=== PATIENT | male | born 1950 | race Caucasian/White ===

== ENCOUNTER 2017-09-12 03:54 | Inpatient (IN) | payer OTHER ==
[~2017-09-12] VITALS: Ht 185.4 cm; Wt 127.9 kg
[~2017-09-12 03:54] MED LIST: AZEL0.05 PO; COEN400C2 PO; ENOX120P SQ; FERR324T4 PO; MONT10TA2 PO; PACE200T4 PO; PROT40TA PO; RIVA15 PO; RIVA20 PO; SYMB160A INH; TUMS500C CHEW; VITA20002 PO; Z.0.OXYGENDME NC
[2017-09-12 04:00] VITALS: BP 135/66; PULSE 60; RESP 18; TEMP 97.6; O2SAT 98
--- NOTE | 2017-09-12 05:08 | PD ---
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 He has been giving himself Rocephin 1 g IM twice daily for the last 10 days while he was away in [place] and it is not responding at this time it is getting worse he has cellulitis around the steve-umbilical area about 10 cm area of cellulitis getting worse in spite of Rocephin IM. In spite of the IM Rocephin it is progressively getting worse she is failing the treatment that he has been giving himself he was away to [place] for a 10 day trip. Patient has a long complicated history of abdomen surgery he had a neuro VACUUM EXTRACTOR OPERATOR shunt attempted to be placed in. [facility] 2006 they apparently put the VACUUM EXTRACTOR OPERATOR shunt into his colon which led to a open laparotomy to repair the colon he was dropped apparently fractured a rib ended up having a splenic lack they took out part of his pancreas as well as taking out the entire spleen at that time and he had a hernia postoperatively which needed a mesh which led to an infection. This episode of cellulitis started about 2 weeks ago and he is failing the IM Rocephin that he was taken he did his own I&D on his periumbilical area with pus expressed he reports this was done within 24 hours he just flew in from [place] today PFSH Past Medical History Arthritis: No Asthma: Yes Atrial Fibrillation: Yes Heart Rhythm Problems: No Cancer: Yes (menegengeoma) Cardiovascular Problems: No Chemotherapy: No Chest Pain: No Congestive Heart Failure: No COPD: No Cerebrovascular Accident: Yes (CVA 1998) Diabetes: No Diminished Hearing: Yes (APACHE) Endocrine: No Gastrointestinal Disorders: Yes GERD: Yes Genitourinary: No Hiatal Hernia: No Hypertension: Yes Kidney Stones: No Musculoskeletal: No Neurologic: Yes Psychiatric: No Reproductive: No Respiratory: Yes Immunizations Current: Yes Migraines: No Pneumonia: Yes Radiation Therapy: No Renal Failure: No Seizures: No Sickle Cell Disease: No Sleep Apnea: No Thyroid Disease: No Ulcer: No Tetanus Vaccination: < 5 Years Influenza Vaccination: Yes Past Surgical History Abdominal Surgery: Yes (abscess to abd, spleenectomy) AICD: No Appendectomy: Yes Arteriovenous Shunt: No Cardiac Surgery: Yes (cardiac ablasion) Endocrine Surgery: No Eye Surgery: Yes (LASIK) Genitourinary Surgery: No Gynecologic Surgery: No Insulin Pump: No Joint Replacement: No Neurologic Surgery: Yes (HEMANGIOMA REMOVAL FROM BRAIN) Pacemaker: No Thoracic Surgery: No Other Surgery: Yes (left and RIGHT FOOT SURGERY, VASECTOMY, R TENDON REPAIR) Social History Alcohol Use: Yes (OCCASION) Tobacco Use: No Substance Use: No Allergies-Medications (Allergen,Severity, Reaction): Coded Allergies: amiodarone (Verified Allergy, Severe, 09/12/17) rash doxycycline (Unverified Allergy, Severe, Rash, 09/12/17) minocycline (Unverified Allergy, Severe, Rash, 09/12/17) tigecycline (Unverified Allergy, Severe, Rash, 09/12/17) Sulfa (Sulfonamide Antibiotics) (Unverified Allergy, Unknown, 09/12/17) ciprofloxacin (Unverified Allergy, Unknown, 09/12/17) Reported Meds & Prescriptions Reported Meds & Active Scripts Active Reported Metoprolol Succinate ER 24 HR (Metoprolol Succinate) 50 Mg Tab 50 Mg PO DAILY Hydrochlorothiazide 25 Mg Tab 25 Mg PO DAILY Lipitor (Atorvastatin Calcium) 80 Mg Tab 80 Mg PO HS Pantoprazole (Pantoprazole Sodium) 40 Mg Tab 40 Mg PO DAILY Montelukast (Montelukast Sodium) 10 Mg Tab 10 Mg PO HS Atorvastatin (Atorvastatin Calcium) 20 Mg Tab 20 Mg PO HS Vitamin D-1000 (Cholecalciferol) 1,000 Unit Tab 1,000 Units PO DAILY Calcium Carbonate (Antacid) 500 Mg Chew 500 Mg CHEW DAILY PRN Review of Systems Except as stated in HPI: all other systems reviewed are Neg Gastrointestinal: Positive: Abdominal Pain Physical Exam Narrative GENERAL: Nontoxic appearing awake alert SKIN: Warm and dry. HEAD: Atraumatic. Normocephalic. EYES: Pupils equal and round. No scleral icterus. No injection or drainage. ENT: No nasal bleeding or discharge. Mucous membranes pink and moist. NECK: Trachea midline. No JVD. CARDIOVASCULAR: Regular rate and rhythm. RESPIRATORY: No accessory muscle use. Clear to auscultation. Breath sounds equal bilaterally. GASTROINTESTINAL: Abdomen --> umbilicus is purulent looking and he also has cellulitis about 10 cm all around the umbilicus it is not raised it is patchy but it is a wide girth of area that has cellulitis MUSCULOSKELETAL: Extremities without clubbing, cyanosis, or edema. No obvious deformities. NEUROLOGICAL: Awake and alert. No obvious cranial nerve deficits. Motor grossly within normal limits. Five out of 5 muscle strength in the arms and legs. Normal speech. PSYCHIATRIC: Appropriate mood and affect; insight and judgment normal. Data Data Last Documented VS Vital Signs Date Time Temp Pulse Resp B/P (MAP) Pulse Ox O2 Delivery O2 Flow Rate FiO2 09/12/17 04:00 97.6 60 18 135/66 (89) 98 Orders Orders Vancomycin Inj (Vancomycin Inj) (09/12/17 05:15) Complete Blood Count With Diff (09/12/17 05:08) Comprehensive Metabolic Panel (09/12/17 05:08) Blood Culture (09/12/17 05:08) Lactic Acid (09/12/17 05:09) Admit Order (Ed Use Only) (09/12/17 05:55) Vital Signs (Adult) DOMINIQUE.Q4H (09/12/17 05:55) Activity Oob Ad Anny (09/12/17 05:55) Morphine Inj (Morphine Inj) (09/12/17 06:00) Diet Heart Healthy (09/12/17 Breakfast) Labs Laboratory Tests Test 09/12/17 05:23 White Blood Count 5.3 TH/MM3 Red Blood Count 4.79 MIL/MM3 Hemoglobin 15.6 GM/DL Hematocrit 45.0 % Mean Corpuscular Volume 93.9 FL Mean Corpuscular Hemoglobin 32.5 PG Mean Corpuscular Hemoglobin Concent 34.6 % Red Cell Distribution Width 13.6 % Platelet Count 393 TH/MM3 Mean Platelet Volume 8.4 FL Neutrophils (%) (Auto) 42.0 % Lymphocytes (%) (Auto) 37.1 % Monocytes (%) (Auto) 14.1 % Eosinophils (%) (Auto) 5.8 % Basophils (%) (Auto) 1.0 % Neutrophils # (Auto) 2.2 TH/MM3 Lymphocytes # (Auto) 2.0 TH/MM3 Monocytes # (Auto) 0.7 TH/MM3 Eosinophils # (Auto) 0.3 TH/MM3 Basophils # (Auto) 0.1 TH/MM3 CBC Comment DIFF FINAL Differential Comment Blood Urea Nitrogen 21 MG/DL Creatinine 1.11 MG/DL Random Glucose 99 MG/DL Total Protein 7.5 GM/DL Albumin 3.7 GM/DL Calcium Level 9.4 MG/DL Alkaline Phosphatase 101 U/L Aspartate Amino Transf (AST/SGOT) 23 U/L Alanine Aminotransferase (ALT/SGPT) 29 U/L Total Bilirubin 0.5 MG/DL Sodium Level 139 MEQ/L Potassium Level 3.9 MEQ/L Chloride Level 103 MEQ/L Carbon Dioxide Level 26.1 MEQ/L Anion Gap 10 MEQ/L Estimat Glomerular Filtration Rate 66 ML/MIN Lactic Acid Level 0.7 mmol/L [facility] Medical Decision Making Medical Screen Exam Complete: Yes Emergency Medical Condition: Yes Differential Diagnosis cellulitis vs abscess vs sub Q hematoma , seroma , peritonitis , umbilical vein infection Narrative Course VANCO IV FOR CELLULITS AND FAILED OUTPT TREATMENT WITH CEFTRIAXONE. im SELF ADMINISTER FOR OVER 7 DAYS WITHOUT IMPROVEMENT , NEED B/C AND CBC AND POSSIBLE IMAGING AND FEW DAYS INPT VANCO AND WOUND CULTURES Ghulam Reeves MD Sep 12, 2017 05:08
[2017-09-12] MEDS ORDERED: VANCOMYCIN INJ 1,000 MG in SODIUM CHLOR 0.9% 250 ML INJ 250 ML IV ONE (05:15)
[2017-09-12 05:47] LABS: AUTOMATED NEUTROPHIL # 2.2 TH/MM3 (1.8-7.7); BASOPHIL # 0.1 TH/MM3 (0-0.2); EOSINOPHIL # 0.3 TH/MM3 (0-0.4); EOSINOPHIL % 5.8 % (0.0-4.0); HEMOGLOBIN 15.6 GM/DL (13.0-17.0); LYMPH % 37.1 % (9.0-44.0); MEAN CELL VOLUME 93.9 FL (80.0-100.0); MEAN CORPUSCULAR HEMOGLOBIN 32.5 PG (27.0-34.0); MEAN CORPUSCULAR HGB CONC 34.6 % (32.0-36.0); MEAN PLATELET VOLUME 8.4 FL (7.0-11.0); MONO % 14.1 % (0.0-8.0); MONOCYTE # 0.7 TH/MM3 (0-0.9); PLATELET COUNT 393 TH/MM3 (150-450); RED BLOOD COUNT 4.79 MIL/MM3 (4.50-5.90); RED CELL DISTRIBUTION WIDTH 13.6 % (11.6-17.2); WHITE BLOOD COUNT 5.3 TH/MM3 (4.0-11.0)
[2017-09-12] MEDS ORDERED: MORPHINE SULFATE 2 MG/ML SYRINGE IV PUSH PRN (06:00)
[2017-09-12 06:16] LABS: ALBUMIN 3.7 GM/DL (3.4-5.0); ALT (GPT) 29 U/L (12-78); AST (GOT) 23 U/L (15-37); BICARBONATE 26.1 MEQ/L (21.0-32.0); BLOOD UREA NITROGEN 21 MG/DL (7-18); CALCIUM 9.4 MG/DL (8.5-10.1); CHLORIDE 103 MEQ/L (98-107); CREATININE 1.11 MG/DL (0.60-1.30); GLOMERULAR FILTRATION RATE 66 ML/MIN (>89); GLUCOSE,RANDOM 99 MG/DL (74-106); SODIUM (NA) 139 MEQ/L (136-145)
[2017-09-12 06:19] LABS: ALKALINE PHOSPHATASE 101 U/L (45-117); TOTAL BILIRUBIN ADULT 0.5 MG/DL (0.2-1.0); TOTAL PROTEIN 7.5 GM/DL (6.4-8.2)
[2017-09-12] MEDS ORDERED: ATOR20TA15 PO (06:35)
[2017-09-12] MEDS ORDERED: PANT40TA3 PO (06:35)
[2017-09-12] MEDS ORDERED: HYDR25TA5 PO (06:35)
[2017-09-12] MEDS ORDERED: METO1TAB9 PO (06:35)
[2017-09-12] MEDS ORDERED: CALC500C16 CHEW (06:35)
[2017-09-12] MEDS ORDERED: LIPI80TA PO (06:35)
[2017-09-12] MEDS ORDERED: MONT10TA4 PO (06:35)
[2017-09-12] MEDS ORDERED: VITA1000 PO (06:35)
[2017-09-12 07:11] VITALS: BP 112/56; PULSE 63; RESP 16; TEMP 97.7; O2SAT 97
--- NOTE | 2017-09-12 09:59 | HHI.HP ---
HPI Service [facility] Hospitalists Primary Care Physician Slick Allen MD Admission Diagnosis cellulitis Chief Complaint: Possible possible abdominal wall abscess Travel History International Travel<30 Days: Yes Contact w/Intl Traveler <30 Da: Yes Name of Country Traveled to: [place], [place], [place] Traveled to Known Affected Are: No History of Present Illness Patient is a pleasant 67-year-old male with prior history of meningioma, status post excision with complications of bacterial meningitis, meningocele, ventriculoperitoneal shunt complications. Patient's postprocedural course for his ventriculoatrial shunt was complicated by a provoked pulmonary embolism and subclavian vein thrombosis. These events occurred in 2013, and I recall the patient from April 2014 hospitalization. Per [facility] review, patient was last seen by hematology/oncology, Dr. Jessy Little October 2014. Patient is no longer on chronic anticoagulation. Patient was seen by general surgery, Dr. Papito Bustillos, on August 28, 2017. I have reviewed the office note. At that time, Dr. Benson complained of localized erythema at his lower abdomen which had started 2 days prior. Patient denied pain or fever physical exam by Dr. Bustillos revealed region of induration and erythema of approximately 10 cm diameter. At that time patient was recommended Rocephin 1 g IV and Augmentin 500 mg 3 times daily for 10 days. Pt completed 3 dose of Augmentin. Patient had an outpatient soft tissue ultrasound on 08/28/17 which showed soft tissue edema. Patient had a second outpatient soft tissue ultrasound performed on 09/02/17 which showed soft tissue edema in the subcutaneous tissue of possible cellulitis. No definitive abscess collection was noted. Subsequently, Dr. Benson traveled from the [facility] to [facility]. Patient has been giving himself Rocephin 1 g IM injections for the last 10 days. However, patient reports that cellulitis around his periumbilical area has been worsening. Pt took clindamycin 450mg 2 doses 09/10 -09/11/17. Pt also started on unspecified probiotics. Patient performed self incision with sterile needle and drainage expressing serosanguineous fluid 09/10/17. No culture was done. Patient flew back to the [place] from [place] arriving in [place], [place] on 09/12/17 arriving after midnight. Patient then drove directly to the [facility] ER. Since admission, patient has had no fever, chills, nausea, vomiting, or diarrhea. Initial CBC showed no leukocytosis, WBC 5.3. Patient received 1 g of vancomycin in the [facility] ER at approximately 5:30 AM this morning. Blood cultures were drawn in the ER and they are pending at this time. Of concern patient has had previous multiple abdominal surgeries: 2006 Pt had ruptured appendix, retrocecal. Wound healed by secondary intent. Pt subsequently developed a ventral hernia which was repaired with mesh and required a revision. 2017 Meningioma surgery. Developed pseudomeningocele. WEB SITE MANAGER shunt converted to ventricular-atrial shunt. 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 Also, colon repair. Review of Systems Constitutional: DENIES: Diaphoretic episodes, Fatigue, Fever, Weight gain, Weight loss, Chills, Dizziness, Change in appetite, Night Sweats Endocrine: DENIES: Heat/cold intolerance, Polydipsia, Polyuria, Polyphagia Eyes: DENIES: Blurred vision, Diplopia, Eye inflammation, Eye pain, Vision loss , Photosensitivity, Double Vision Ears, nose, mouth, throat: DENIES: Tinnitus, Hearing loss, Vertigo, Nasal discharge, Oral lesions, Throat pain, Hoarseness, Ear Pain, Running Nose, Epistaxis, Sinus Pain, Toothache, Odynophagia Respiratory: DENIES: Apneas, Cough, Snoring, Wheezing, Hemoptysis, Sputum production, Shortness of breath Cardiovascular: DENIES: Chest pain, Palpitations, Syncope, Dyspnea on Exertion , PND, Lower Extremity Edema, Orthopnea, Claudication Gastrointestinal: DENIES: Abdominal pain, Black stools, Bloody stools, BRB per rectum, Constipation, Diarrhea, GERD, Nausea, Reflux, Vomiting, Difficulty Swallowing, Anorexia Genitourinary: DENIES: Urinary frequency, Urinary incontinence, Urgency, Hematuria, Dysuria, Nocturia Musculoskeletal: DENIES: Joint pain, Muscle aches, Stiffness, Joint Swelling, Back pain, Neck pain Integumentary: DENIES: Abnormal pigmentation, Nail changes, Pruritus, Rash Hematologic/lymphatic: DENIES: Bruising, Lymphadenopathy Immunologic/allergic: DENIES: Eczema, Urticaria Neurologic: DENIES: Abnormal gait, Headache, Localized weakness, Paresthesias, Seizures, Speech Problems, Tremor, Poor Balance Psychiatric: DENIES: Anxiety, Confusion, Mood changes, Depression, Hallucinations, Agitation, Suicidal Ideation, Homicidal Ideation, Delusions, History of Bipolar, History of Schizophrenia Past Family Social History Past Medical History 1) meningioma, status post excision with complications of bacterial meningitis, meningocele, BP shunt complications in 2013 2) provoked pulmonary embolism and subclavian vein thrombosis associated with WEB SITE MANAGER shunt & subsequent VA shunt -Patient completed 6 months of anticoagulation therapy under hematology 3) basal ganglia infarction in 1998 -Residual right foot weakness at times 4) mitral regurgitation 5) osteoarthritis 6) asthma 7) history of anal fissure 8) transient atrial fibrillation, s/p ablation x 2 9) hypertension 10) DAJUAN on CPAP 11) Migraines 12) previously reported Hyperhomocysteinemia 13 ) Antiphospholipid syndrome - needs repeat antiphospholipid panel as only marginally abnormal in May 2014 Past Surgical History 1) excision of meningioma, extending from the foramen magnum to C1 by suboccipital craniotomy with C1 laminectomy, 2013 2) WEB SITE MANAGER shunt, 2013 3) laparotomy with repair to the spleen and excision of a portion of the pancreas, colon repair 4) ventricularatrial shunt 5) appendectomy secondary to ruptured appendix, 2006 6) ventral hernia repair with subsequent infection. Pt had mesh. 7) Atrial fibrillation, ablation x 2, at [facility] [place] [facility]. Reported Medications Reported Meds & Active Scripts Active Reported Metoprolol Succinate ER 24 HR (Metoprolol Succinate) 50 Mg Tab 50 Mg PO DAILY Hydrochlorothiazide 25 Mg Tab 25 Mg PO DAILY Lipitor (Atorvastatin Calcium) 80 Mg Tab 80 Mg PO HS Pantoprazole (Pantoprazole Sodium) 40 Mg Tab 40 Mg PO DAILY Montelukast (Montelukast Sodium) 10 Mg Tab 10 Mg PO HS Atorvastatin (Atorvastatin Calcium) 20 Mg Tab 20 Mg PO HS Vitamin D-1000 (Cholecalciferol) 1,000 Unit Tab 1,000 Units PO DAILY Calcium Carbonate (Antacid) 500 Mg Chew 500 Mg CHEW DAILY PRN Allergies: Coded Allergies: amiodarone (Verified Allergy, Severe, 09/12/17) rash doxycycline (Unverified Allergy, Severe, Rash, 09/12/17) minocycline (Unverified Allergy, Severe, Rash, 09/12/17) tigecycline (Unverified Allergy, Severe, Rash, 09/12/17) Sulfa (Sulfonamide Antibiotics) (Unverified Allergy, Unknown, 09/12/17) ciprofloxacin (Unverified Allergy, Unknown, 4/26/18) Family History Mother age 83, carcinomatosis Father age 85 lymphoma Sister age 48 lymphoma Brother alive and well, age 55 Social History 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 A daughter who lives locally, [facility], and a son who lives in [place]. No tobacco use 14 alcohol beverages per week, mainly red wine or bourbon No illicit street drugs Physical Exam Vital Signs Vital Signs Date Time Temp Pulse Resp B/P (MAP) Pulse Ox O2 Delivery O2 Flow Rate FiO2 09/12/17 07:11 97.7 63 16 112/56 (74) 97 Room Air 09/12/17 04:00 97.6 60 18 135/66 (89) 98 Physical Exam GENERAL: This is a well-nourished, well-developed patient, in no apparent distress. SKIN: No rashes, ecchymoses or lesions. Cool and dry. HEAD: Atraumatic. Normocephalic. No temporal or scalp tenderness. EYES: Pupils equal round and reactive. Extraocular motions intact. No scleral icterus. No injection or drainage. ENT: Nose without bleeding, purulent drainage or septal hematoma. Throat without erythema, tonsillar hypertrophy or exudate. Uvula midline. Airway patent. NECK: Trachea midline. No JVD or lymphadenopathy. Supple, nontender, no meningeal signs. CARDIOVASCULAR: Regular rate and rhythm without murmurs, gallops, or rubs. RESPIRATORY: Clear to auscultation. Breath sounds equal bilaterally. No wheezes , rales, or rhonchi. GASTROINTESTINAL: Abdomen soft, non-tender, nondistended. No hepato-splenomegaly , or palpable masses. No guarding. MUSCULOSKELETAL: Extremities without clubbing, cyanosis, or edema. No joint tenderness, effusion, or edema noted. No calf tenderness. Negative Homans sign bilaterally. NEUROLOGICAL: Awake and alert. Cranial nerves II through XII intact. Motor and sensory grossly within normal limits. Five out of 5 muscle strength in all muscle groups. Normal speech. Laboratory Laboratory Tests Test 09/12/17 05:23 White Blood Count 5.3 Red Blood Count 4.79 Hemoglobin 15.6 Hematocrit 45.0 Mean Corpuscular Volume 93.9 Mean Corpuscular Hemoglobin 32.5 Mean Corpuscular Hemoglobin Concent 34.6 Red Cell Distribution Width 13.6 Platelet Count 393 Mean Platelet Volume 8.4 Neutrophils (%) (Auto) 42.0 Lymphocytes (%) (Auto) 37.1 Monocytes (%) (Auto) 14.1 Eosinophils (%) (Auto) 5.8 Basophils (%) (Auto) 1.0 Neutrophils # (Auto) 2.2 Lymphocytes # (Auto) 2.0 Monocytes # (Auto) 0.7 Eosinophils # (Auto) 0.3 Basophils # (Auto) 0.1 CBC Comment DIFF FINAL Differential Comment Blood Urea Nitrogen 21 Creatinine 1.11 Random Glucose 99 Total Protein 7.5 Albumin 3.7 Calcium Level 9.4 Alkaline Phosphatase 101 Aspartate Amino Transf (AST/SGOT) 23 Alanine Aminotransferase (ALT/SGPT) 29 Total Bilirubin 0.5 Sodium Level 139 Potassium Level 3.9 Chloride Level 103 Carbon Dioxide Level 26.1 Anion Gap 10 Estimat Glomerular Filtration Rate 66 Lactic Acid Level 0.7 Date/Time Source Procedure Growth Status 09/12/17 05:25 Blood Peripheral Aerobic Blood Culture Pending Received 09/12/17 05:25 Blood Peripheral Anaerobic Blood Culture Pending Received Result Diagram: 09/12/17 0523 09/12/17 0523 Septic Shock Reassessment Septic shock perfusion: reassessment completed Caprini VTE Risk Assessment Caprini VTE Risk Assessment: Mod/High Risk (score >= 2) Caprini Risk Assessment Model Point Value = 1 Point Value = 2 Point Value = 3 Point Value = 5 Age 41-60 Minor surgery BMI > 25 kg/m2 Swollen legs Varicose veins or History of unexplained or recurrent spontaneous Oral contraceptives or hormone replacement Sepsis (< 1 month) Serious lung disease, including pneumonia (< 1 month) Abnormal pulmonary function Acute myocardial infarction Congestive heart failure (< 1 month) History of inflammatory bowel disease Medical patient at bed rest Age 61-74 Arthroscopic surgery Major open surgery (> 45 min) Laparoscopic surgery (> 45 min) Malignancy Confined to bed (> 72 hours) Immobilizing plaster cast Central venous access Age >= 75 History of VTE Family history of VTE Factor V Leiden Prothrombin [id number] Lupus anticoagulant Anticardiolipin antibodies Elevated serum homocysteine Heparin-induced thrombocytopenia Other congenital or acquired thrombophilia Stroke (< 1 month) Elective arthroplasty Hip, pelvis, or leg fracture Acute spinal cord injury (< 1 month) Prophylaxis Regimen Total Risk Factor Score Risk Level Prophylaxis Regimen 0-1 Low Early ambulation 2 Moderate Order ONE of the following: *Sequential Compression Device (SCD) *Heparin 5000 units SQ BID 3-4 Higher Order ONE of the following medications: *Heparin 5000 units SQ TID *Enoxaparin/Lovenox 40 mg SQ daily (WT < 150 kg, CrCl > 30 mL/min) *Enoxaparin/Lovenox 30 mg SQ daily (WT < 150 kg, CrCl > 10-29 mL/min) *Enoxaparin/Lovenox 30 mg SQ BID (WT < 150 kg, CrCl > 30 mL/min) AND/OR *Sequential Compression Device (SCD) 5 or more Highest Order ONE of the following medications: *Heparin 5000 units SQ TID (Preferred with Epidurals) *Enoxaparin/Lovenox 40 mg SQ daily (WT < 150 kg, CrCl > 30 mL/min) *Enoxaparin/Lovenox 30 mg SQ daily (WT < 150 kg, CrCl > 10-29 mL/min) *Enoxaparin/Lovenox 30 mg SQ BID (WT < 150 kg, CrCl > 30 mL/min) AND *Sequential Compression Device (SCD) Assessment and Plan Problem List: (1) Cellulitis, abdominal wall ICD Codes: L03.311 - Cellulitis of abdominal wall Status: Acute Plan: - Comgmt with Infectious Disease and General Surgery - please see my the HPI section of my H&P for detailed account of the pt's clinical course prior to admission and discussion of previous abdominal surgeries - Pt was taking IM Rocephin for approximately 10d prior to arrival at [facility] - Pt also briefly took PO augmentin and clindamycin in the 2 week proceeding his admission. - Case d/w Infectious Disease (09/12/17), Dr. Sanchez. - Case d/w General Surgery (09/12/17), Dr. Bustillos. - Continue Vancomycin - Obtain soft tissue of abdominal wall - Obtain Abdominal CT - DVT prophylaxis - supportive care. (2) Paroxysmal atrial fibrillation ICD Codes: I48.0 - Paroxysmal atrial fibrillation Status: Chronic Plan: - continue metoprolol and Aspirin (3) HTN (hypertension) ICD Codes: I10 - HTN (hypertension) Status: Chronic Plan: - metoprolol (4) Asthma ICD Codes: J45.909 - Asthma Status: Chronic Plan: - duonebs prn (5) Meningioma ICD Codes: D32.9 - Meningioma Status: Resolved Plan: - see HPI and PMH for further discussion of this prior issue. Problem Qualifiers (1) HTN (hypertension): Qualified Codes: I10 - Essential (primary) hypertension (2) Asthma: Yusuf Saldana DO Sep 12, 2017 09:59
[2017-09-12] MEDS ORDERED: RESP: ALBUTEROL 2.5 MG/IPRATROPIUM 0.5 MG NEB (PRN) NEB (10:45)
[2017-09-12 12:00] VITALS: BP 118/61; PULSE 65; RESP 20; TEMP 96; O2SAT 94
[2017-09-12] MEDS: PANTOPRAZOLE SOD 40 MG DELAYED RELEASE TAB PO SCH (12:02)
[2017-09-12] MEDS: ASPIRIN 325 MG TAB PO SCH (12:02)
[2017-09-12] MEDS: METOPROLOL SUCCINATE 50 MG EXTENDED RELEASE TAB PO SCH (12:02)
--- NOTE | 2017-09-12 13:05 | RADRPT ---
EXAM DATE/TIME: 09/12/2017 11:57 [facility] COMPARISON: No previous studies available for comparison. INDICATIONS : Abdomen swelling and redness. MEDICAL HISTORY : Gastroesophageal reflux disease. Hypertension. Cerebrovascular accident. Afib. Asthma. Pneumonia. O steoarthritis. Meningioma. SURGICAL HISTORY : Splenectomy. Appendectomy. Hemangioma removal from brain. Lasik. Abscess drainage. Bilateral foot s urgery. Vasectomy. Right tendon repair. Herniorrhaphy. ENCOUNTER: Initial ACUITY: 2 weeks PAIN SCORE: 2/10 LOCATION: Abdomen. AREA EVALUATED: Midline abdomen just inferior to the umbilicus. FINDINGS: A targeted ultrasound study was performed the area of concern demonstrated a superficial hypoechoic i ll-defined mass like area measuring up to 2.9 x 2.9 1.4 cm with scattered increased color-flow. The m argins are not well-defined. CONCLUSION: Ill-defined hypoechoic area which is nonspecific and could represent localized edema and/or inflammatory change. This is less likely represents an abscess. Taran Salazar MD on September 12, 2017 at 13:02 Board Certified Radiologist. This report was verified electronically.
--- NOTE | 2017-09-12 13:09 | PD.ID.CON ---
History of Present Illness Service ID Consult Requested By Reason for Consult Evaluation and Mment of Abdominal wall abscess. Primary Care Physician Slick Allen MD Diagnoses: History of Present Illness Doctor Marcelino is a 67 y/o CM with PMHx significant for history of meningioma, status post excision with complications of bacterial meningitis, meningocele, ventriculoperitoneal shunt complications. 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 Of note patient has had multiple abdominal surgeries with complications and has an abdominal wall mesh. Per patient he saw Dr.Harry Bustillos in office on 08/28/2017 with complains of localized erythema at his lower abdomen which had started 2 days prior to that visit.No reported fever or abdominal pain at that time. He was recommended Rocephin and Augmentin for 10 days. Patient has been self administering these in his bilateral buttocks as IM injections. Patient reportedly had an outpatient soft tissue ultrasound on 08/28/17 which showed soft tissue edema. Patient had a second outpatient soft tissue ultrasound performed on 09/02/17 which showed soft tissue edema in the subcutaneous tissue of possible cellulitis. No definitive abscess collection was noted. Patient reports he traveled from the [facility] to [facility]. Patient has been giving himself Rocephin 1 g IM injections for the last 10 days. However, patient reports that cellulitis around his periumbilical area has been worsening. Pt took clindamycin 450mg 2 doses 09/10 -09/11/17. Pt also started on unspecified probiotics. Patient performed self incision with sterile needle and drainage expressing serosanguineous fluid 09/10/17. No culture was done. Patient flew back to the [facility] from [place] arriving in [place], [place] on 09/12/17 arriving after midnight. Patient then drove directly to the [facility] ER. Since admission, patient has had no fever, chills, nausea, vomiting, or diarrhea. Initial CBC showed no leukocytosis, WBC 5.3. Patient received 1 g of vancomycin in the [place] ER at approximately 5:30 AM this morning. Blood cultures were drawn in the ER and they are pending at this time. Previous multiple abdominal surgeries: 2007 Pt had ruptured appendix, retrocecal. Wound healed by secondary intent. Pt subsequently developed a ventral hernia which was repaired with mesh and required a revision. 2017 Meningioma surgery. Developed pseudomeningocele. RN ALLERGY shunt converted to ventricular-atrial shunt. 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 Also, colon repair. ID was consulted for evaluation and Mment of abdominal wall abscess. Review of Systems Constitutional: DENIES: Diaphoretic episodes, Fatigue, Fever, Weight gain, Weight loss, Chills, Dizziness, Change in appetite, Night Sweats Endocrine: DENIES: Heat/cold intolerance, Polydipsia, Polyuria, Polyphagia Eyes: DENIES: Blurred vision, Diplopia, Eye inflammation, Eye pain, Vision loss , Photosensitivity, Double Vision Ears, nose, mouth, throat: DENIES: Tinnitus, Hearing loss, Vertigo, Nasal discharge, Oral lesions, Throat pain, Hoarseness, Ear Pain, Running Nose, Epistaxis, Sinus Pain, Toothache, Odynophagia Respiratory: DENIES: Apneas, Cough, Snoring, Wheezing, Hemoptysis, Sputum production, Shortness of breath Cardiovascular: DENIES: Chest pain, Palpitations, Syncope, Dyspnea on Exertion , PND, Lower Extremity Edema, Orthopnea, Claudication Gastrointestinal: DENIES: Abdominal pain, Black stools, Bloody stools, Constipation, Diarrhea, Nausea, Vomiting, Difficulty Swallowing, Anorexia Genitourinary: DENIES: Sexual dysfunction, Urinary frequency, Urinary incontinence, Urgency, Hematuria, Dysuria, Nocturia, Penile Discharge, Testicular Pain, Testicular Swelling Musculoskeletal: DENIES: Joint pain, Muscle aches, Stiffness, Joint Swelling, Back pain, Neck pain Integumentary: DENIES: Abnormal pigmentation, Nail changes, Pruritus, Rash Hematologic/lymphatic: DENIES: Bruising, Lymphadenopathy Immunologic/allergic: DENIES: Eczema, Urticaria Neurologic: DENIES: Abnormal gait, Headache, Localized weakness, Paresthesias, Seizures, Speech Problems, Tremor, Poor Balance Psychiatric: DENIES: Anxiety, Confusion, Mood changes, Depression, Hallucinations, Agitation, Suicidal Ideation, Homicidal Ideation, Delusions Except as stated in HPI: all other systems reviewed are Neg Past Family Social History Allergies: Coded Allergies: amiodarone (Verified Allergy, Severe, 09/12/17) rash doxycycline (Unverified Allergy, Severe, Rash, 09/12/17) minocycline (Unverified Allergy, Severe, Rash, 09/12/17) tigecycline (Unverified Allergy, Severe, Rash, 09/12/17) Sulfa (Sulfonamide Antibiotics) (Unverified Allergy, Unknown, 09/12/17) ciprofloxacin (Unverified Allergy, Unknown, 09/12/17) Past Medical History 1) meningioma, status post excision with complications of bacterial meningitis, meningocele, BP shunt complications in 2013 2) provoked pulmonary embolism and subclavian vein thrombosis associated with RN ALLERGY shunt & subsequent VA shunt -Patient completed 6 months of anticoagulation therapy under hematology 3) basal ganglia infarction in 1998 -Residual right foot weakness at times 4) mitral regurgitation 5) osteoarthritis 6) asthma 7) history of anal fissure 8) transient atrial fibrillation, s/p ablation x 2 9) hypertension 10) DAJUAN on CPAP 11) Migraines 12) previously reported Hyperhomocysteinemia 13 ) Antiphospholipid syndrome - needs repeat antiphospholipid panel as only marginally abnormal in May 2014 Past Surgical History 1) excision of meningioma, extending from the foramen magnum to C1 by suboccipital craniotomy with C1 laminectomy, 2013 2) RN ALLERGY shunt, 2013 3) laparotomy with repair to the spleen and excision of a portion of the pancreas, colon repair 4) ventricularatrial shunt 5) appendectomy secondary to ruptured appendix, 2006 6) ventral hernia repair with subsequent infection. Pt had mesh. 7) Atrial fibrillation, ablation x 2, at [facility]. Reported Medications Rocephin,augmentin and clindamycin. Reported Meds & Active Scripts Active Reported Metoprolol Succinate ER 24 HR (Metoprolol Succinate) 50 Mg Tab 50 Mg PO DAILY Hydrochlorothiazide 25 Mg Tab 25 Mg PO DAILY Lipitor (Atorvastatin Calcium) 80 Mg Tab 80 Mg PO HS Pantoprazole (Pantoprazole Sodium) 40 Mg Tab 40 Mg PO DAILY Montelukast (Montelukast Sodium) 10 Mg Tab 10 Mg PO HS Atorvastatin (Atorvastatin Calcium) 20 Mg Tab 20 Mg PO HS Vitamin D-1000 (Cholecalciferol) 1,000 Unit Tab 1,000 Units PO DAILY Calcium Carbonate (Antacid) 500 Mg Chew 500 Mg CHEW DAILY PRN Active Ordered Medications Current Medications Medications (Trade) Dose Ordered Sig/Leatha Route Start Time Stop Time Status Last Admin (Morphine Inj) 2 mg Q3H PRN IV PUSH 09/12/17 06:00 (Lipitor) 20 mg HS PO 09/12/17 21:00 (Vitamin D3) 1,000 units DAILY PO 09/13/17 09:00 09/13/17 08:45 (Toprol Xl) 50 mg DAILY PO 09/12/17 10:30 09/13/17 08:44 (Singulair) 10 mg HS PO 09/12/17 21:00 09/12/17 21:24 (Protonix) 40 mg DAILY PO 09/12/17 10:30 09/13/17 08:45 (Duoneb Neb) 1 ampule Q6HR NEB PRN NEB 09/12/17 10:45 (Aspirin) 325 mg DAILY PO 09/12/17 12:00 09/13/17 08:44 Pharmacy Profile Note 0 ml @ 0 mls/hr UNSCH OTHER 09/12/17 17:30 Vancomycin HCl 1500 mg/Sodium Chloride 515 ml @ 257.5 mls/ hr Q12H IV 09/13/17 09:00 09/13/17 08:44 Miscellaneous Information SPECIFIC LAB TO BE CYNTHIA... 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 A daughter who lives locally, [facility], and a son who lives in [place]. No tobacco use 14 alcohol beverages per week, mainly red wine or bourbon No illicit street drugs Physical Exam Vital Signs Vital Signs Date Time Temp Pulse Resp B/P (MAP) Pulse Ox O2 Delivery O2 Flow Rate FiO2 09/12/17 11:16 09/12/17 07:11 97.7 63 16 112/56 (74) 97 Room Air 09/12/17 04:00 97.6 60 18 135/66 (89) 98 Physical Exam GENERAL: This is a well-nourished, well-developed patient, in no apparent distress. SKIN: No rashes, ecchymoses or lesions. Cool and dry. HEAD: Atraumatic. Normocephalic. No temporal or scalp tenderness. EYES: Pupils equal round and reactive. Extraocular motions intact. No scleral icterus. No injection or drainage. ENT: Nose without bleeding, purulent drainage or septal hematoma. Throat without erythema, tonsillar hypertrophy or exudate. Uvula midline. Airway patent. NECK: Trachea midline. Supple, nontender, no meningeal signs. VA shunt palpable. CARDIOVASCULAR: Regular rate and rhythm without murmurs, gallops, or rubs. RESPIRATORY: Clear to auscultation. Breath sounds equal bilaterally. No wheezes , rales, or rhonchi. GASTROINTESTINAL: Abdomen soft, midline heaped up induration with small serous to yellow discharge with a large area of surrounding erythema and induration. MUSCULOSKELETAL: Extremities without clubbing, cyanosis, or edema. No joint tenderness, effusion, or edema noted. No calf tenderness. Negative Homans sign bilaterally. NEUROLOGICAL: Awake and alert. Cranial nerves II through XII intact. Motor and sensory grossly within normal limits. Five out of 5 muscle strength in all muscle groups. Speech hesitant Cooperative, pleasant IV line sites with no e.o infection. Laboratory Laboratory Tests Test 09/12/17 05:23 White Blood Count 5.3 Red Blood Count 4.79 Hemoglobin 15.6 Hematocrit 45.0 Mean Corpuscular Volume 93.9 Mean Corpuscular Hemoglobin 32.5 Mean Corpuscular Hemoglobin Concent 34.6 Red Cell Distribution Width 13.6 Platelet Count 393 Mean Platelet Volume 8.4 Neutrophils (%) (Auto) 42.0 Lymphocytes (%) (Auto) 37.1 Monocytes (%) (Auto) 14.1 Eosinophils (%) (Auto) 5.8 Basophils (%) (Auto) 1.0 Neutrophils # (Auto) 2.2 Lymphocytes # (Auto) 2.0 Monocytes # (Auto) 0.7 Eosinophils # (Auto) 0.3 Basophils # (Auto) 0.1 CBC Comment DIFF FINAL Differential Comment Blood Urea Nitrogen 21 Creatinine 1.11 Random Glucose 99 Total Protein 7.5 Albumin 3.7 Calcium Level 9.4 Alkaline Phosphatase 101 Aspartate Amino Transf (AST/SGOT) 23 Alanine Aminotransferase (ALT/SGPT) 29 Total Bilirubin 0.5 Sodium Level 139 Potassium Level 3.9 Chloride Level 103 Carbon Dioxide Level 26.1 Anion Gap 10 Estimat Glomerular Filtration Rate 66 Lactic Acid Level 0.7 Date/Time Source Procedure Growth Status 09/12/17 05:25 Blood Peripheral Aerobic Blood Culture Pending Received 09/12/17 05:25 Blood Peripheral Anaerobic Blood Culture Pending Received Result Diagram: 09/12/17 0523 09/12/17 0523 Imaging Last Impressions Soft Tissue Ultrasound 09/12/17 0000 Signed Impressions: Service Date/Time: August 11:57 - CONCLUSION: Ill-defined hypoechoic area which is nonspecific and could represent localized edema and/ or inflammatory change. This is less likely represents an abscess. Taran Salazar MD Abdomen/Pelvis CT 09/12/17 0000 Signed Impressions: Service Date/Time: August 14:47 - CONCLUSION: Soft tissue underneath the umbilicus with some surrounding inflammation. This is likely related to the hernia mesh placement. Obviously difficult to rule out infection with this amount of surrounding inflammation but I do not see any drainable fluid collections to suggest an abscess. Beau Walker MD Assessment and Plan Assessment and Plan A/P Abd wall cellulitis with concern for Mesh infection Recs CT Abd pelvis reviewed with Continue Vanco IV for cellulitis. Patient has tried Rocephin, Augmentin and clindamycin with no response. dr Saldana mentioned to me plans on no surgical intervention at present time so empiric vanco alone was started to assess response since all other gram negative coverage and non MRSA coverage failed so far. Dw and who will cover in am for me: agree mesh likely source and needs to come out. Await surgical opinion Opal Sanchez MD Sep 12, 2017 13:09
[2017-09-12] MEDS ORDERED: IOHEXOL 350 MG/ML 10 ML VIAL (for RAD DIAG) IVCONTRAST ONE (14:51)
--- NOTE | 2017-09-12 15:07 | RADRPT ---
EXAM DATE/TIME: 09/12/2017 14:47 [facility] COMPARISON: No previous studies available for comparison. INDICATIONS : Cellulitis IV CONTRAST: 95 cc Omnipaque 350 (iohexol) IV ORAL CONTRAST: No oral contrast ingested. RADIATION DOSE: 16.78 CTDIvol (mGy) MEDICAL HISTORY : Cerebrovascular disease. Cardiovascular disease Gastroesophageal reflux disease.Abdominal surgery, as thma, meningioma SURGICAL HISTORY : Appendectomy. Splenectomy. ENCOUNTER: Initial ACUITY: 1 day PAIN SCALE: 3/10 LOCATION: Abdomen TECHNIQUE: Volumetric scanning of the abdomen and pelvis was performed. Using automated exposure control and ad justment of the mA and/or kV according to patient size, radiation dose was kept as low as reasonably achievable to obtain optimal diagnostic quality images. DICOM format image data is available electro nically for review and comparison. FINDINGS: LOWER LUNGS: The visualized lower lungs are clear. LIVER: Homogeneous density without lesion. There is no dilation of the biliary tree. No calcified gallston es. SPLEEN: Normal size without lesion. PANCREAS: Within normal limits. KIDNEYS: Normal in size and shape. There is no mass, stone or hydronephrosis. ADRENAL GLANDS: Within normal limits. VASCULAR: There is no aortic aneurysm. BOWEL/MESENTERY: The stomach, small bowel, and colon demonstrate no acute abnormality. There is no free intraperitone al air or fluid. ABDOMINAL WALL: In the intra-abdominal wall, underneath the umbilicus there is an abnormal area of soft tissue measur ing up to 5.8 cm across. It extends for 8.1 cm in height I suspect is related to the hernia mesh. I d on't see surrounding soft tissue fluid collections. There is diffuse inflammation of the overlying s ubcutaneous fat could be a cellulitis. RETROPERITONEUM: There is no lymphadenopathy. BLADDER: No wall thickening or mass. REPRODUCTIVE: Within normal limits. INGUINAL: There is no lymphadenopathy or hernia. MUSCULOSKELETAL: Within normal limits for patient age. CONCLUSION: Soft tissue underneath the umbilicus with some surrounding inflammation. This is likely related to th e hernia mesh placement. Obviously difficult to rule out infection with this amount of surrounding in flammation but I do not see any drainable fluid collections to suggest an abscess. Beau Walker MD on September 12, 2017 at 15:01 Board Certified Radiologist. This report was verified electronically.
[2017-09-12 16:00] VITALS: BP 120/65; PULSE 65; RESP 20; TEMP 97; O2SAT 95
--- NOTE | 2017-09-12 16:27 | PD.CONS ---
HPI Service General Surgery Consult Requested By Dr. Saldana Reason for Consult Abdominal wall cellulitis Primary Care Physician Slick Allen MD History of Present Illness 67 yo M known to Dr. Bustillos with recent h/o abdominal wall cellulitis treated as outpatient with various antibiotics. He recently was on a trip to [place] with increasing erythema and flew back here last night, presenting to ED this am. On evaluation he is noted to have cellulitis of the abdominal wall. U/s showed inflammation and CT a/p shows inflammation possibly mesh related. WBC is nml. PSH includes laparotomy for ruptured appendicitis with skin left open, ventral hernia repair with mesh x 2. Review of Systems Constitutional: DENIES: Fever, Chills Eyes: DENIES: Eye inflammation, Eye pain Respiratory: DENIES: Cough, Shortness of breath Cardiovascular: DENIES: Chest pain, Palpitations Gastrointestinal: DENIES: Abdominal pain, Nausea, Vomiting Neurologic: DENIES: Paresthesias, Seizures Past Family Social History Past Medical History 1) meningioma, status post excision with complications of bacterial meningitis, meningocele, BP shunt complications in 2013 2) provoked pulmonary embolism and subclavian vein thrombosis associated with DIRECTOR OF PHILANTHROPY shunt & subsequent VA shunt -Patient completed 6 months of anticoagulation therapy under hematology 3) basal ganglia infarction in 1998 -Residual right foot weakness at times 4) mitral regurgitation 5) osteoarthritis 6) asthma 7) history of anal fissure 8) transient atrial fibrillation, s/p ablation x 2 9) hypertension 10) DAJUAN on CPAP 11) Migraines 12) previously reported Hyperhomocysteinemia 13 ) Antiphospholipid syndrome - needs repeat antiphospholipid panel as only marginally abnormal in May 2014 Past Surgical History 1) excision of meningioma, extending from the foramen magnum to C1 by suboccipital craniotomy with C1 laminectomy, 2013 2) DIRECTOR OF PHILANTHROP[employer] shunt, 2013 3) laparotomy with repair to the spleen and excision of a portion of the pancreas, colon repair 4) ventricularatrial shunt 5) appendectomy secondary to ruptured appendix, 2006 6) ventral hernia repair with subsequent infection. Pt had mesh. 7) Atrial fibrillation, ablation x 2, at [facility]. Reported Medications Reported Meds & Active Scripts Active Reported Metoprolol Succinate ER 24 HR (Metoprolol Succinate) 50 Mg Tab 50 Mg PO DAILY Hydrochlorothiazide 25 Mg Tab 25 Mg PO DAILY Lipitor (Atorvastatin Calcium) 80 Mg Tab 80 Mg PO HS Pantoprazole (Pantoprazole Sodium) 40 Mg Tab 40 Mg PO DAILY Montelukast (Montelukast Sodium) 10 Mg Tab 10 Mg PO HS Atorvastatin (Atorvastatin Calcium) 20 Mg Tab 20 Mg PO HS Vitamin D-1000 (Cholecalciferol) 1,000 Unit Tab 1,000 Units PO DAILY Calcium Carbonate (Antacid) 500 Mg Chew 500 Mg CHEW DAILY PRN Allergies: Coded Allergies: amiodarone (Verified Allergy, Severe, 09/12/17) rash doxycycline (Unverified Allergy, Severe, Rash, 09/12/17) minocycline (Unverified Allergy, Severe, Rash, 09/12/17) tigecycline (Unverified Allergy, Severe, Rash, 09/12/17) Sulfa (Sulfonamide Antibiotics) (Unverified Allergy, Unknown, 09/12/17) ciprofloxacin (Unverified Allergy, Unknown, 09/12/17) Active Ordered Medications Current Medications Medications (Trade) Dose Ordered Sig/[place] Route Start Time Stop Time Status Last Admin (Morphine Inj) 2 mg Q3H PRN IV PUSH 09/12/17 06:00 (Lipitor) 20 mg HS PO 09/12/17 21:00 (Vitamin D3) 1,000 units DAILY PO 09/13/17 09:00 (Toprol Xl) 50 mg DAILY PO 09/12/17 10:30 09/12/17 12:02 (Singulair) 10 mg HS PO 09/12/17 21:00 (Protonix) 40 mg DAILY PO 09/12/17 10:30 09/12/17 12:02 (Duoneb Neb) 1 ampule Q6HR NEB PRN NEB 09/12/17 10:45 (Aspirin) 325 mg DAILY PO 09/12/17 12:00 09/12/17 12:02 Family History Noncontributory Social History 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 No smoking. 14 alcoholic beverages per week. Physical Exam Vital Signs Vital Signs Date Time Temp Pulse Resp B/P (MAP) Pulse Ox O2 Delivery O2 Flow Rate FiO2 09/12/17 12:00 96.0 65 20 118/61 (80) 94 4/26/18 11:16 09/12/17 07:11 97.7 63 16 112/56 (74) 97 Room Air 09/12/17 04:00 97.6 60 18 135/66 (89) 98 Physical Exam GENERAL: Awake and alert. No acute distress. Cooperative. HEAD: Normocephalic. Atraumatic. EYES: Pupils equal round and reactive to light bilaterally. No scleral icterus. ENT: Moist oral mucosa. NECK: Trachea midline. CHEST: Nonlabored breathing. No respiratory distress. CARDIOVASCULAR: Regular rate and rhythm. ABDOMEN: bilateral lower abdominal erythema. 1 inch open raised area at umbilicus EXTREMITIES: No cyanosis or edema. SKIN: Warm, dry, nonjaundiced. Laboratory Laboratory Tests Test 09/12/17 05:23 09/12/17 14:18 White Blood Count 5.3 Red Blood Count 4.79 Hemoglobin 15.6 Hematocrit 45.0 Mean Corpuscular Volume 93.9 Mean Corpuscular Hemoglobin 32.5 Mean Corpuscular Hemoglobin Concent 34.6 Red Cell Distribution Width 13.6 Platelet Count 393 Mean Platelet Volume 8.4 Neutrophils (%) (Auto) 42.0 Lymphocytes (%) (Auto) 37.1 Monocytes (%) (Auto) 14.1 Eosinophils (%) (Auto) 5.8 Basophils (%) (Auto) 1.0 Neutrophils # (Auto) 2.2 Lymphocytes # (Auto) 2.0 Monocytes # (Auto) 0.7 Eosinophils # (Auto) 0.3 Basophils # (Auto) 0.1 CBC Comment DIFF FINAL Differential Comment Blood Urea Nitrogen 21 Creatinine 1.11 Random Glucose 99 Total Protein 7.5 Albumin 3.7 Calcium Level 9.4 Alkaline Phosphatase 101 Aspartate Amino Transf (AST/SGOT) 23 Alanine Aminotransferase (ALT/SGPT) 29 Total Bilirubin 0.5 Sodium Level 139 Potassium Level 3.9 Chloride Level 103 Carbon Dioxide Level 26.1 Anion Gap 10 Estimat Glomerular Filtration Rate 66 Lactic Acid Level 0.7 Date/Time Source Procedure Growth Status 09/12/17 05:25 Blood Peripheral Aerobic Blood Culture Pending Received 09/12/17 05:25 Blood Peripheral Anaerobic Blood Culture Pending Received 09/12/17 13:34 Wound Abdomen Gram Stain Pending Received 09/12/17 13:34 Wound Abdomen Wound Culture Pending Received Result Diagram: 09/12/17 0523 09/12/17 0523 Imaging Last Impressions Soft Tissue Ultrasound 09/12/17 0000 Signed Impressions: Service Date/Time: August 11:57 - CONCLUSION: Ill-defined hypoechoic area which is nonspecific and could represent localized edema and/ or inflammatory change. This is less likely represents an abscess. Taran Salazar MD Abdomen/Pelvis CT 09/12/17 0000 Signed Impressions: Service Date/Time: August 14:47 - CONCLUSION: Soft tissue underneath the umbilicus with some surrounding inflammation. This is likely related to the hernia mesh placement. Obviously difficult to rule out infection with this amount of surrounding inflammation but I do not see any drainable fluid collections to suggest an abscess. Beau Walker MD Assessment and Plan Assessment and Plan 67 yo M h/o multiple abdominal surgeries including ventral hernia repair with mesh with abdominal cellulitis. Some concern for mesh infection. He requires continued IV antibiotics, no need for debridement at this point. Ghulam Pelletier MD Sep 12, 2017 16:27
[2017-09-12] MEDS ORDERED: Vancomycin Consult Pharmacy 1 EA OTHER SCH (17:30)
[2017-09-12] MEDS ORDERED: VANCOMYCIN INJ 1,000 MG in SODIUM CHLOR 0.9% 250 ML INJ 250 ML IV SCH (17:30)
[2017-09-12] MEDS ORDERED: VANCOMYCIN INJ 2,500 MG in SODIUM CHLORID 0.9% 500 ML INJ 500 ML IV ONE (21:00)
[2017-09-12] MEDS: ATORVASTATIN 20 MG TAB PO SCH (21:00)
[2017-09-12] MEDS: MONTELUKAST SODIUM 10 MG TAB PO SCH (21:24)
[2017-09-12] MEDS: LACTOBACILLUS ACIDOPHILUS TAB PO SCH (21:25)
[2017-09-13 00:02] VITALS: BP 105/56; PULSE 57; RESP 16; TEMP 97.5; O2SAT 96
[2017-09-13 03:45] VITALS: BP 109/64; PULSE 55; RESP 16; TEMP 97.6; O2SAT 96
[2017-09-13 07:43] LABS: AUTOMATED NEUTROPHIL # 2.6 TH/MM3 (1.8-7.7); BASOPHIL # 0.1 TH/MM3 (0-0.2); BASOPHIL % 1.2 % (0.0-2.0); EOSINOPHIL # 0.4 TH/MM3 (0-0.4); EOSINOPHIL % 7.6 % (0.0-4.0); HEMATOCRIT 44.8 % (39.0-51.0); HEMOGLOBIN 15.4 GM/DL (13.0-17.0); LYMPH % 26.2 % (9.0-44.0); LYMPHOCYTE # 1.3 TH/MM3 (1.0-4.8); MEAN CELL VOLUME 94.7 FL (80.0-100.0); MEAN CORPUSCULAR HEMOGLOBIN 32.6 PG (27.0-34.0); MEAN CORPUSCULAR HGB CONC 34.5 % (32.0-36.0); MEAN PLATELET VOLUME 8.5 FL (7.0-11.0); MONO % 12.8 % (0.0-8.0); MONOCYTE # 0.6 TH/MM3 (0-0.9); NEUT % 52.2 % (16.0-70.0); PLATELET COUNT 393 TH/MM3 (150-450); RED BLOOD COUNT 4.73 MIL/MM3 (4.50-5.90); RED CELL DISTRIBUTION WIDTH 13.7 % (11.6-17.2); WHITE BLOOD COUNT 4.9 TH/MM3 (4.0-11.0)
[2017-09-13 08:00] VITALS: BP 110/50; PULSE 55; RESP 20; TEMP 98.2; O2SAT 95
[2017-09-13 08:14] LABS: BICARBONATE 26.8 MEQ/L (21.0-32.0); CALCIUM 9.1 MG/DL (8.5-10.1); CREATININE 1.01 MG/DL (0.60-1.30)
[2017-09-13] MEDS: ASPIRIN 325 MG TAB PO SCH (08:44)
[2017-09-13] MEDS: METOPROLOL SUCCINATE 50 MG EXTENDED RELEASE TAB PO SCH (08:44)
[2017-09-13] MEDS: VANCOMYCIN 1,500 MG/NS 500 ML IV SCH ×4 (08:44→21:43)
[2017-09-13] MEDS: LACTOBACILLUS ACIDOPHILUS TAB PO SCH ×4 (08:45→21:43)
[2017-09-13] MEDS: PANTOPRAZOLE SOD 40 MG DELAYED RELEASE TAB PO SCH (08:45)
[2017-09-13] MEDS: CHOLECALCIFEROL (VIT D3) 1000 UNIT TAB PO SCH (08:45)
[2017-09-13 12:08] VITALS: BP 108/65; PULSE 62; RESP 20; TEMP 98.2; O2SAT 96
[2017-09-13 15:50] VITALS: BP 120/62; PULSE 68; RESP 20; TEMP 98.6; O2SAT 98
[2017-09-13 15:57] LABS: CARDIOLIPIN IGG AB <9.4 GPL; CARDIOLIPIN IGM AB <9.4 MPL
--- NOTE | 2017-09-13 16:17 | HHI.PR ---
Subjective Remarks No new complaints. Pt denies fever or sweats. Pt is eating well. Pt denies n/v/d. Objective Vitals Vital Signs Date Time Temp Pulse Resp B/P (MAP) Pulse Ox O2 Delivery O2 Flow Rate FiO2 09/13/17 15:50 98.6 68 20 120/62 (81) 98 09/13/17 12:08 98.2 62 20 108/65 (79) 96 09/13/17 08:00 98.2 55 20 110/50 (70) 95 09/13/17 03:45 97.6 55 16 109/64 (79) 96 09/13/17 00:02 97.5 57 16 105/56 (72) 96 09/13/17 09/13/17 09/14/17 15:00 23:00 07:00 Intake Total 515 ml Balance 515 ml IV Total 515 ml Result Diagram: 09/13/17 0708 09/13/17 0708 Imaging Last Impressions Soft Tissue Ultrasound 09/12/17 0000 Signed Impressions: Service Date/Time: August 11:57 - CONCLUSION: Ill-defined hypoechoic area which is nonspecific and could represent localized edema and/ or inflammatory change. This is less likely represents an abscess. Taran Salazar MD Abdomen/Pelvis CT 09/12/17 0000 Signed Impressions: Service Date/Time: August 14:47 - CONCLUSION: Soft tissue underneath the umbilicus with some surrounding inflammation. This is likely related to the hernia mesh placement. Obviously difficult to rule out infection with this amount of surrounding inflammation but I do not see any drainable fluid collections to suggest an abscess. Beau Walker MD Objective Remarks GENERAL: This is a well-nourished, well-developed patient, in no apparent distress. CARDIOVASCULAR: Regular rate and rhythm without murmurs, gallops, or rubs. RESPIRATORY: Clear to auscultation. Breath sounds equal bilaterally. No wheezes , rales, or rhonchi. GASTROINTESTINAL: Abdomen soft, non-tender, nondistended. Normal active bowel sounds MUSCULOSKELETAL: Extremities without clubbing, cyanosis, or edema. NEURO: Alert & Oriented x4 to person, place, time, situation. Moves all ext x4 Skin: erythema at the abdominal wall appears to be improving from admission (). Less red. one inch area, open and raised at umbilicus, but less drainage - serous - from admission. A/P Problem List: (1) Cellulitis, abdominal wall ICD Codes: L03.311 - Cellulitis of abdominal wall Status: Acute Plan: - Comgmt with Infectious Disease and General Surgery - please see my the HPI section of my H&P for detailed account of the pt's clinical course prior to admission and discussion of previous abdominal surgeries - Pt was taking IM Rocephin for approximately 10d prior to arrival at [place] - Pt also briefly took PO augmentin and clindamycin in the 2 week proceeding his admission. - US of Soft tissue of abdominal wall (09/12) --> no abscess - CT Abd (09/12) --> NO abscess - Case d/w Infectious Disease (09/12/17), Dr. Sanchez. - Case d/w General Surgery (09/12/17), Dr. Bustillos. - Case d/w General Surgery (09/13/17), Dr. Pelletier. - Continue Vancomycin thru 09/16/17. - Will observe clinic course thru Saturday 09/16 and then discuss case further with ID and General Surgery - DVT prophylaxis - supportive care (2) Paroxysmal atrial fibrillation ICD Codes: I48.0 - Paroxysmal atrial fibrillation Status: Chronic Plan: - continue metoprolol and Aspirin (3) HTN (hypertension) ICD Codes: I10 - HTN (hypertension) Status: Chronic Plan: - metoprolol (4) Asthma ICD Codes: J45.909 - Asthma Status: Chronic Plan: - duonebs prn (5) Meningioma ICD Codes: D32.9 - Meningioma Status: Resolved Plan: - see HPI and PMH for further discussion of this prior issue. Problem Qualifiers (1) HTN (hypertension): Qualified Codes: I10 - Essential (primary) hypertension (2) Asthma: Yusuf Saldana DO Sep 13, 2017 16:17
[2017-09-13 20:00] VITALS: BP 114/65; PULSE 57; RESP 17; TEMP 97.6; O2SAT 94
[2017-09-13] MEDS: ATORVASTATIN 20 MG TAB PO SCH (21:00)
[2017-09-13] MEDS: MONTELUKAST SODIUM 10 MG TAB PO SCH (21:43)
[2017-09-14] VITALS: BP 116/56; PULSE 60; RESP 17; TEMP 97.2; O2SAT 94
[2017-09-14 08:00] VITALS: BP 108/66; PULSE 57; RESP 18; TEMP 97.9; O2SAT 94
[2017-09-14] MEDS ORDERED: PHARMACY ORDERED LAB ONE (08:45)
[2017-09-14] MEDS: LACTOBACILLUS ACIDOPHILUS TAB PO SCH ×4 (09:29→20:16)
[2017-09-14] MEDS: ASPIRIN 325 MG TAB PO SCH (09:29)
[2017-09-14] MEDS: PANTOPRAZOLE SOD 40 MG DELAYED RELEASE TAB PO SCH (09:29)
[2017-09-14] MEDS: METOPROLOL SUCCINATE 50 MG EXTENDED RELEASE TAB PO SCH (09:29)
[2017-09-14] MEDS: CHOLECALCIFEROL (VIT D3) 1000 UNIT TAB PO SCH (09:29)
[2017-09-14] MEDS: VANCOMYCIN 1,500 MG/NS 500 ML IV SCH ×4 (09:30→20:16)
--- NOTE | 2017-09-14 10:43 | HHI.PR ---
Subjective Remarks No new complaints. Objective Vitals Vital Signs Date Time Temp Pulse Resp B/P (MAP) Pulse Ox O2 Delivery O2 Flow Rate FiO2 09/14/17 08:00 97.9 57 18 108/66 (80) 94 09/14/17 00:00 97.2 60 17 116/56 (76) 94 09/13/17 20:00 97.6 57 17 114/65 (81) 94 09/13/17 15:50 98.6 68 20 120/62 (81) 98 09/13/17 12:08 98.2 62 20 108/65 (79) 96 Result Diagram: 09/13/17 0708 09/13/17 0708 Imaging Last Impressions Soft Tissue Ultrasound 09/12/17 0000 Signed Impressions: Service Date/Time: August 11:57 - CONCLUSION: Ill-defined hypoechoic area which is nonspecific and could represent localized edema and/ or inflammatory change. This is less likely represents an abscess. Taran Salazar MD Abdomen/Pelvis CT 09/12/17 0000 Signed Impressions: Service Date/Time: August 14:47 - CONCLUSION: Soft tissue underneath the umbilicus with some surrounding inflammation. This is likely related to the hernia mesh placement. Obviously difficult to rule out infection with this amount of surrounding inflammation but I do not see any drainable fluid collections to suggest an abscess. Beau Walker MD Objective Remarks GENERAL: This is a well-nourished, well-developed patient, in no apparent distress. CARDIOVASCULAR: Regular rate and rhythm without murmurs, gallops, or rubs. RESPIRATORY: Clear to auscultation. Breath sounds equal bilaterally. No wheezes , rales, or rhonchi. GASTROINTESTINAL: Abdomen soft, non-tender, nondistended. Normal active bowel sounds MUSCULOSKELETAL: Extremities without clubbing, cyanosis, or edema. NEURO: Alert & Oriented x4 to person, place, time, situation. Moves all ext x4 Skin: erythema at the abdominal wall appears to be improving from admission (). Less red. one inch area, open and raised at umbilicus, but less drainage - serous - improving from admission. A/P Problem List: (1) Cellulitis, abdominal wall ICD Codes: L03.311 - Cellulitis of abdominal wall Status: Acute Plan: - Comgmt with Infectious Disease and General Surgery - please see my the HPI section of my H&P for detailed account of the pt's clinical course prior to admission and discussion of previous abdominal surgeries - Pt was taking IM Rocephin for approximately 10d prior to arrival at [place] - Pt also briefly took PO augmentin and clindamycin in the 2 week proceeding his admission. - US of Soft tissue of abdominal wall (09/12) --> no abscess - CT Abd (09/12) --> NO abscess - Case d/w Infectious Disease (09/12/17), Dr. Sanchez. - Case d/w General Surgery (09/12/17), Dr. Bustillos. - Case d/w General Surgery (09/13/17), Dr. Pelletier. - Continue Vancomycin thru 09/16/17. - Will observe clinic course thru Saturday 09/16 and then discuss case further with ID and General Surgery - DVT prophylaxis - supportive care 09/14/17 - Pt interviewed and examined. - Pt's abdominal wall celluitis continues to improve. - Abdominal wall has less erythema, raised area at umbilicus improving - continue vancomycin thru (2) Paroxysmal atrial fibrillation ICD Codes: I48.0 - Paroxysmal atrial fibrillation Status: Chronic Plan: - continue metoprolol and Aspirin (3) HTN (hypertension) ICD Codes: I10 - HTN (hypertension) Status: Chronic Plan: - metoprolol (4) Asthma ICD Codes: J45.909 - Asthma Status: Chronic Plan: - duonebs prn (5) Meningioma ICD Codes: D32.9 - Meningioma Status: Resolved Plan: - see HPI and PMH for further discussion of this prior issue. Problem Qualifiers (1) HTN (hypertension): Qualified Codes: I10 - Essential (primary) hypertension (2) Asthma: Yusuf Saldana DO Sep 14, 2017 10:43
--- NOTE | 2017-09-14 10:51 | HHI.PR ---
Subjective Subjective Notes No complaints. Objective Vitals/I&O Vital Signs Date Time Temp Pulse Resp B/P (MAP) Pulse Ox O2 Delivery O2 Flow Rate FiO2 09/14/17 08:00 97.9 57 18 108/66 (80) 94 09/12/17 07:11 Room Air Labs Laboratory Tests Test 09/14/17 09:10 Vancomycin Level Trough 17.2 Date/Time Source Procedure Growth Status 09/12/17 05:25 Blood Peripheral Aerobic Blood Culture - Preliminary NO GROWTH IN 1 DAY Resulted 09/12/17 05:25 Blood Peripheral Anaerobic Blood Culture - Preliminary NO GROWTH IN 1 DAY Resulted 09/13/17 16:35 Wound Abdomen Gram Stain - Final Resulted 09/13/17 16:35 Wound Abdomen Wound Culture Pending Resulted Radiology Last Impressions Soft Tissue Ultrasound 09/12/17 0000 Signed Impressions: Service Date/Time: August 11:57 - CONCLUSION: Ill-defined hypoechoic area which is nonspecific and could represent localized edema and/ or inflammatory change. This is less likely represents an abscess. Taran Salazar MD Abdomen/Pelvis CT 09/12/17 0000 Signed Impressions: Service Date/Time: August 14:47 - CONCLUSION: Soft tissue underneath the umbilicus with some surrounding inflammation. This is likely related to the hernia mesh placement. Obviously difficult to rule out infection with this amount of surrounding inflammation but I do not see any drainable fluid collections to suggest an abscess. Beau Walker MD Narrative Exam No distress, sitting in chair in street clothes Abdomen: still with erythema, somewhat improved. Bandage in place over umbilicus with some serous drainage A/P Assessment and Plan 67 yo M abdominal wall infection possibly secondary to mesh infection. Continue IV antibiotics. No plans for mesh explantation. If he requires surgical intervention would be debridement of abdominal wound and vac placement. Often macroporous mesh can be salvaged without aggressive removal. Ghulam Pelletier MD Sep 14, 2017 10:50
[2017-09-14 12:00] VITALS: BP 114/61; PULSE 52; RESP 19; TEMP 97.9; O2SAT 95
[2017-09-14 16:00] VITALS: BP 156/81; PULSE 60; RESP 17; TEMP 97.6; O2SAT 94
--- NOTE | 2017-09-14 16:45 | HHI.IDPN ---
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 Vital Signs Date Time Temp Pulse Resp B/P (MAP) Pulse Ox O2 Delivery O2 Flow Rate FiO2 09/14/17 12:00 97.9 52 19 114/61 (78) 95 09/14/17 08:00 97.9 57 18 108/66 (80) 94 09/14/17 00:00 97.2 60 17 116/56 (76) 94 09/13/17 20:00 97.6 57 17 114/65 (81) 94 . Laboratory Tests Test 09/13/17 07:08 White Blood Count 4.9 TH/MM3 Red Blood Count 4.73 MIL/MM3 Hemoglobin 15.4 GM/DL Hematocrit 44.8 % Mean Corpuscular Volume 94.7 FL Mean Corpuscular Hemoglobin 32.6 PG Mean Corpuscular Hemoglobin Concent 34.5 % Red Cell Distribution Width 13.7 % Platelet Count 393 TH/MM3 Mean Platelet Volume 8.5 FL Neutrophils (%) (Auto) 52.2 % Lymphocytes (%) (Auto) 26.2 % Monocytes (%) (Auto) 12.8 % Eosinophils (%) (Auto) 7.6 % Basophils (%) (Auto) 1.2 % Neutrophils # (Auto) 2.6 TH/MM3 Lymphocytes # (Auto) 1.3 TH/MM3 Monocytes # (Auto) 0.6 TH/MM3 Eosinophils # (Auto) 0.4 TH/MM3 Basophils # (Auto) 0.1 TH/MM3 CBC Comment DIFF FINAL Differential Comment Laboratory Tests Test 09/13/17 07:08 Blood Urea Nitrogen 20 MG/DL Creatinine 1.01 MG/DL Random Glucose 97 MG/DL Calcium Level 9.1 MG/DL Magnesium Level 2.0 MG/DL Sodium Level 139 MEQ/L Potassium Level 4.0 MEQ/L Chloride Level 105 MEQ/L Carbon Dioxide Level 26.8 MEQ/L Anion Gap 7 MEQ/L Estimat Glomerular Filtration Rate 73 ML/MIN Microbiology Date/Time Source Procedure Growth Status 09/12/17 05:25 Blood Peripheral Aerobic Blood Culture - Preliminary NO GROWTH IN 2 DAYS Resulted 09/12/17 05:25 Blood Peripheral Anaerobic Blood Culture - Preliminary NO GROWTH IN 2 DAYS Resulted 09/12/17 05:23 Blood Peripheral Aerobic Blood Culture - Preliminary NO GROWTH IN 2 DAYS Resulted 09/12/17 05:23 Blood Peripheral Anaerobic Blood Culture - Preliminary NO GROWTH IN 2 DAYS Resulted 09/13/17 16:35 Wound Abdomen Gram Stain - Final Resulted 09/13/17 16:35 Wound Abdomen Wound Culture - Preliminary NO GROWTH IN 24 HOURS. Resulted 09/12/17 13:34 Wound Abdomen Acid Fast Stain Pending Received 09/12/17 13:34 Wound Abdomen Mycobacterial Culture Pending Received 09/12/17 13:34 Wound Abdomen Fungal Smear - Final NO FUNGAL ELEMENTS SEEN. Resulted 09/12/17 13:34 Wound Abdomen Fungal Culture Pending Resulted 09/12/17 13:34 Wound Abdomen Gram Stain - Final Resulted 09/12/17 13:34 Wound Culture - Preliminary Staphylococcus Species Resulted Imaging Last Impressions Soft Tissue Ultrasound 09/12/17 0000 Signed Impressions: Service Date/Time: August 11:57 - CONCLUSION: Ill-defined hypoechoic area which is nonspecific and could represent localized edema and/ or inflammatory change. This is less likely represents an abscess. Taran Salazar MD Abdomen/Pelvis CT 09/12/17 0000 Signed Impressions: Service Date/Time: August 14:47 - CONCLUSION: Soft tissue underneath the umbilicus with some surrounding inflammation. This is likely related to the hernia mesh placement. Obviously difficult to rule out infection with this amount of surrounding inflammation but I do not see any drainable fluid collections to suggest an abscess. Beau Walker MD Physical Exam GENERAL: This is a well-nourished, well-developed patient, in no apparent distress. SKIN: No rashes, ecchymoses or lesions. Cool and dry. EYES: No scleral icterus. No injection or drainage. ENT: Nose without bleeding, purulent drainage or septal hematoma. Throat without erythema, tonsillar hypertrophy or exudate. Uvula midline. Airway patent. CARDIOVASCULAR: Regular rate and rhythm without murmurs, gallops, or rubs. RESPIRATORY: Clear to auscultation. Breath sounds equal bilaterally. No wheezes , rales, or rhonchi. GASTROINTESTINAL: Abdomen soft, midline heaped up induration with small serous to yellow discharge with a large area of surrounding erythema and induration. OPneing in the middle of incision with some necrotic tissu and serosang drainage MUSCULOSKELETAL: Extremities without clubbing, cyanosis, or edema. NEUROLOGICAL: Awake and alert. Non focal Cooperative, pleasant IV line sites with no e.o infection. Laboratory Assessment & Plan Remarks abdominal wall Mesh infection, with fistula - growint staph 1 CFU - pt presented with partial treatmetn prior to clx was obtained, including dicloxacillin and rocephine CT Abd pelvis reviewed with radiologist: definiete marked inflammation around mesh Recs - fu clx, including fungal and AFB =- cont zosyn, vancomycin - with mesh infection high likelyhood of failure during or after treatment especially if smx persist 1 week p x Sindi Alvarenga MD Sep 14, 2017 16:44
[2017-09-14] MEDS: PIPERACIL-TAZO 3.375 GM PREMIX 50 ML IV SCH ×2 (18:07→23:09)
[2017-09-14 20:00] VITALS: BP 141/69; PULSE 57; RESP 18; TEMP 97.7; O2SAT 97
[2017-09-14] MEDS: MONTELUKAST SODIUM 10 MG TAB PO SCH (20:16)
[2017-09-14] MEDS: ATORVASTATIN 20 MG TAB PO SCH (20:16)
[2017-09-14] MEDS ORDERED: LOSA50TA2 PO (20:25)
[2017-09-15] VITALS: BP 134/70; PULSE 63; RESP 18; TEMP 97.3; O2SAT 94
[2017-09-15] MEDS: PIPERACIL-TAZO 3.375 GM PREMIX 50 ML IV SCH ×4 (05:58→23:08)
[2017-09-15 08:00] VITALS: BP 116/65; PULSE 57; RESP 17; TEMP 98; O2SAT 94
[2017-09-15] MEDS: PANTOPRAZOLE SOD 40 MG DELAYED RELEASE TAB PO SCH (09:06)
[2017-09-15] MEDS: CHOLECALCIFEROL (VIT D3) 1000 UNIT TAB PO SCH (09:06)
[2017-09-15] MEDS: LACTOBACILLUS ACIDOPHILUS TAB PO SCH ×4 (09:06→20:22)
[2017-09-15] MEDS: METOPROLOL SUCCINATE 50 MG EXTENDED RELEASE TAB PO SCH (09:06)
[2017-09-15] MEDS: VANCOMYCIN 1,500 MG/NS 500 ML IV SCH ×4 (09:06→20:22)
[2017-09-15] MEDS: ASPIRIN 325 MG TAB PO SCH (09:06)
--- NOTE | 2017-09-15 09:30 | HHI.PR ---
Subjective Subjective Notes pt comfortable states redness decreasing on abdomen Objective Vitals/I&O Vital Signs Date Time Temp Pulse Resp B/P (MAP) Pulse Ox O2 Delivery O2 Flow Rate FiO2 09/15/17 00:00 97.3 63 18 134/70 (91) 94 09/12/17 07:11 Room Air Labs Date/Time Source Procedure Growth Status 09/12/17 05:25 Blood Peripheral Aerobic Blood Culture - Preliminary NO GROWTH IN 2 DAYS Resulted 09/12/17 05:25 Blood Peripheral Anaerobic Blood Culture - Preliminary NO GROWTH IN 2 DAYS Resulted 09/13/17 16:35 Wound Abdomen Gram Stain - Final Resulted 09/13/17 16:35 Wound Abdomen Wound Culture - Preliminary NO GROWTH IN 24 HOURS. Resulted Radiology Last Impressions Soft Tissue Ultrasound 09/12/17 0000 Signed Impressions: Service Date/Time: August 11:57 - CONCLUSION: Ill-defined hypoechoic area which is nonspecific and could represent localized edema and/ or inflammatory change. This is less likely represents an abscess. Taran Salazar MD Abdomen/Pelvis CT 09/12/17 0000 Signed Impressions: Service Date/Time: August 14:47 - CONCLUSION: Soft tissue underneath the umbilicus with some surrounding inflammation. This is likely related to the hernia mesh placement. Obviously difficult to rule out infection with this amount of surrounding inflammation but I do not see any drainable fluid collections to suggest an abscess. Beau Walker MD Abdomen: Non-tender Extremities: Perfused Wound Wound : Appearance: Erythema Drainage: Clear A/P Assessment and Plan pt with mesh infection improving on abx cont abx will follow in am Cornelius Phelps MD Sep 15, 2017 09:30
[2017-09-15 12:00] VITALS: BP 115/58; PULSE 50; RESP 18; TEMP 97.5; O2SAT 97
[2017-09-15 15:53] LABS: PHOSPHATIDYLSERINE AB IGA LESS THAN 20.0 U/mL (< 20.0); PHOSPHATIDYLSERINE AB IGG LESS THAN 10.0 U/mL (< 11.0); PHOSPHATIDYLSERINE AB IGM LESS THAN 25.0 U/mL (< 25.0)
[2017-09-15 16:00] VITALS: BP 127/69; PULSE 48; RESP 19; TEMP 97.3; O2SAT 97
--- NOTE | 2017-09-15 18:04 | HHI.PR ---
Subjective Remarks No new complaints. Objective Vitals Vital Signs Date Time Temp Pulse Resp B/P (MAP) Pulse Ox O2 Delivery O2 Flow Rate FiO2 09/15/17 16:00 97.3 48 19 127/69 (88) 97 09/15/17 12:00 97.5 50 18 115/58 (77) 97 09/15/17 08:00 98.0 57 17 116/65 (82) 94 09/15/17 00:00 97.3 63 18 134/70 (91) 94 09/14/17 20:00 97.7 57 18 141/69 (93) 97 09/15/17 09/15/17 09/16/17 15:00 23:00 07:00 Intake Total 307.5 ml 650 ml Balance 307.5 ml 650 ml Intake Oral 600 ml IV Total 307.5 ml 50 ml # Voids 5 # Bowel Movements 1 Result Diagram: 09/13/17 0708 09/13/17 0708 Imaging Last Impressions Soft Tissue Ultrasound 09/12/17 0000 Signed Impressions: Service Date/Time: August 11:57 - CONCLUSION: Ill-defined hypoechoic area which is nonspecific and could represent localized edema and/ or inflammatory change. This is less likely represents an abscess. Taran Salazar MD Abdomen/Pelvis CT 09/12/17 0000 Signed Impressions: Service Date/Time: August 14:47 - CONCLUSION: Soft tissue underneath the umbilicus with some surrounding inflammation. This is likely related to the hernia mesh placement. Obviously difficult to rule out infection with this amount of surrounding inflammation but I do not see any drainable fluid collections to suggest an abscess. Beau Walker MD Objective Remarks GENERAL: This is a well-nourished, well-developed patient, in no apparent distress. CARDIOVASCULAR: Regular rate and rhythm without murmurs, gallops, or rubs. RESPIRATORY: Clear to auscultation. Breath sounds equal bilaterally. No wheezes , rales, or rhonchi. GASTROINTESTINAL: Abdomen soft, non-tender, nondistended. Normal active bowel sounds MUSCULOSKELETAL: Extremities without clubbing, cyanosis, or edema. NEURO: Alert & Oriented x4 to person, place, time, situation. Moves all ext x4 Skin: erythema at the abdominal wall appears to be improving from admission (). Less red. one inch area, open and raised at umbilicus, but less drainage - serous - improving from admission. A/P Problem List: (1) Cellulitis, abdominal wall ICD Codes: L03.311 - Cellulitis of abdominal wall Status: Acute Plan: - Comgmt with Infectious Disease and General Surgery - please see my the HPI section of my H&P for detailed account of the pt's clinical course prior to admission and discussion of previous abdominal surgeries - Pt was taking IM Rocephin for approximately 10d prior to arrival at [place] - Pt also briefly took PO augmentin and clindamycin in the 2 week proceeding his admission. - US of Soft tissue of abdominal wall (09/12) --> no abscess - CT Abd (09/12) --> NO abscess - Case d/w Infectious Disease (09/12/17), Dr. Sanchez. - Case d/w General Surgery (09/12/17), Dr. Bustillos. - Case d/w General Surgery (09/13/17), Dr. Pelletier. - Continue Vancomycin thru 09/16/17. - Will observe clinic course thru Saturday 09/16 and then discuss case further with ID and General Surgery - DVT prophylaxis - supportive care 09/15/17 - Pt interviewed and examined. - Pt's abdominal wall celluitis continues to improve. - Abdominal wall has less erythema, raised area at umbilicus improving - continue vancomycin thru - on Saturday 09/16, will need to discuss case with Gen Surgery and ID. (2) Paroxysmal atrial fibrillation ICD Codes: I48.0 - Paroxysmal atrial fibrillation Status: Chronic Plan: - continue metoprolol and Aspirin (3) HTN (hypertension) ICD Codes: I10 - HTN (hypertension) Status: Chronic Plan: - metoprolol (4) Asthma ICD Codes: J45.909 - Asthma Status: Chronic Plan: - duonebs prn (5) Meningioma ICD Codes: D32.9 - Meningioma Status: Resolved Plan: - see HPI and PMH for further discussion of this prior issue. Problem Qualifiers (1) HTN (hypertension): Qualified Codes: I10 - Essential (primary) hypertension (2) Asthma: Yusuf Saldana DO Sep 15, 2017 18:04
[2017-09-15 20:00] VITALS: BP 120/58; PULSE 57; RESP 22; TEMP 97.4; O2SAT 95
[2017-09-15] MEDS: MONTELUKAST SODIUM 10 MG TAB PO SCH (20:23)
[2017-09-15] MEDS: ATORVASTATIN 20 MG TAB PO SCH (20:29)
[2017-09-16] VITALS: BP 103/52; PULSE 53; RESP 20; TEMP 97.4; O2SAT 95
[2017-09-16] MEDS: PIPERACIL-TAZO 3.375 GM PREMIX 50 ML IV SCH ×2 (05:06→13:07)
[2017-09-16 08:00] VITALS: BP 99/54; PULSE 50; RESP 18; TEMP 98.2; O2SAT 92
[2017-09-16 08:02] LABS: AUTOMATED NEUTROPHIL # 3.2 TH/MM3 (1.8-7.7); BASOPHIL # 0.1 TH/MM3 (0-0.2); BASOPHIL % 1.1 % (0.0-2.0); EOSINOPHIL # 0.4 TH/MM3 (0-0.4); EOSINOPHIL % 7.9 % (0.0-4.0); HEMATOCRIT 45.1 % (39.0-51.0); HEMOGLOBIN 15.7 GM/DL (13.0-17.0); LYMPH % 20.9 % (9.0-44.0); LYMPHOCYTE # 1.1 TH/MM3 (1.0-4.8); MEAN CELL VOLUME 94.1 FL (80.0-100.0); MEAN CORPUSCULAR HEMOGLOBIN 32.7 PG (27.0-34.0); MEAN CORPUSCULAR HGB CONC 34.7 % (32.0-36.0); MEAN PLATELET VOLUME 8.9 FL (7.0-11.0); MONO % 11.9 % (0.0-8.0); MONOCYTE # 0.7 TH/MM3 (0-0.9); NEUT % 58.2 % (16.0-70.0); PLATELET COUNT 366 TH/MM3 (150-450); RED CELL DISTRIBUTION WIDTH 13.6 % (11.6-17.2); WHITE BLOOD COUNT 5.5 TH/MM3 (4.0-11.0)
[2017-09-16 08:17] LABS: BICARBONATE 27.5 MEQ/L (21.0-32.0); CALCIUM 9.2 MG/DL (8.5-10.1); CREATININE 1.19 MG/DL (0.60-1.30)
[2017-09-16] MEDS ORDERED: PHARMACY ORDERED LAB ONE (08:45)
--- NOTE | 2017-09-16 09:07 | HHI.PR ---
Subjective Remarks Patient feels that cellulitis is improving Offers no new complaints Objective Vitals Vital Signs Date Time Temp Pulse Resp B/P (MAP) Pulse Ox O2 Delivery O2 Flow Rate FiO2 09/16/17 08:00 98.2 50 18 99/54 (69) 92 09/16/17 00:00 97.4 53 20 103/52 (69) 95 09/15/17 20:00 97.4 57 22 120/58 (78) 95 09/15/17 16:00 97.3 48 19 127/69 (88) 97 09/15/17 12:00 97.5 50 18 115/58 (77) 97 Result Diagram: 09/16/17 0648 09/16/17 0648 Other Results Laboratory Tests Test 09/14/17 09:10 09/16/17 06:48 Vancomycin Level Trough 17.2 MCG/ML White Blood Count 5.5 TH/MM3 Red Blood Count 4.80 MIL/MM3 Hemoglobin 15.7 GM/DL Hematocrit 45.1 % Mean Corpuscular Volume 94.1 FL Mean Corpuscular Hemoglobin 32.7 PG Mean Corpuscular Hemoglobin Concent 34.7 % Red Cell Distribution Width 13.6 % Platelet Count 366 TH/MM3 Mean Platelet Volume 8.9 FL Neutrophils (%) (Auto) 58.2 % Lymphocytes (%) (Auto) 20.9 % Monocytes (%) (Auto) 11.9 % Eosinophils (%) (Auto) 7.9 % Basophils (%) (Auto) 1.1 % Neutrophils # (Auto) 3.2 TH/MM3 Lymphocytes # (Auto) 1.1 TH/MM3 Monocytes # (Auto) 0.7 TH/MM3 Eosinophils # (Auto) 0.4 TH/MM3 Basophils # (Auto) 0.1 TH/MM3 CBC Comment DIFF FINAL Differential Comment Blood Urea Nitrogen 20 MG/DL Creatinine 1.19 MG/DL Random Glucose 92 MG/DL Calcium Level 9.2 MG/DL Magnesium Level 2.0 MG/DL Sodium Level 141 MEQ/L Potassium Level 4.2 MEQ/L Chloride Level 106 MEQ/L Carbon Dioxide Level 27.5 MEQ/L Anion Gap 8 MEQ/L Estimat Glomerular Filtration Rate 61 ML/MIN Imaging Last Impressions Soft Tissue Ultrasound 09/12/17 0000 Signed Impressions: Service Date/Time: August 11:57 - CONCLUSION: Ill-defined hypoechoic area which is nonspecific and could represent localized edema and/ or inflammatory change. This is less likely represents an abscess. Taran Salazar MD Abdomen/Pelvis CT 09/12/17 0000 Signed Impressions: Service Date/Time: , September 12, 2017 14:47 - CONCLUSION: Soft tissue underneath the umbilicus with some surrounding inflammation. This is likely related to the hernia mesh placement. Obviously difficult to rule out infection with this amount of surrounding inflammation but I do not see any drainable fluid collections to suggest an abscess. Beau Walker MD Objective Remarks GENERAL: This is a well-nourished, well-developed patient, in no apparent distress. CARDIOVASCULAR: Regular rate and rhythm without murmurs, gallops, or rubs. RESPIRATORY: Clear to auscultation. Breath sounds equal bilaterally. No wheezes , rales, or rhonchi. GASTROINTESTINAL: Abdomen soft, non-tender, nondistended. Normal active bowel sounds MUSCULOSKELETAL: Extremities without clubbing, cyanosis, or edema. NEURO: Alert & Oriented x4 to person, place, time, situation. Moves all ext x4 Skin: erythema at the abdominal wall appears to be improving from admission (). Less red. one inch area, open and raised at umbilicus, but less drainage - serous - improving from admission. A/P Problem List: (1) Cellulitis, abdominal wall ICD Codes: L03.311 - Cellulitis of abdominal wall Status: Acute Plan: - Comgmt with Infectious Disease and General Surgery - please see my the HPI section of my H&P for detailed account of the pt's clinical course prior to admission and discussion of previous abdominal surgeries - Pt was taking IM Rocephin for approximately 10d prior to arrival at [place] - Pt also briefly took PO augmentin and clindamycin in the 2 week proceeding his admission. - US of Soft tissue of abdominal wall (09/12) --> no abscess - CT Abd (09/12) --> NO abscess - Case d/w Infectious Disease (09/12/17), Dr. Sanchez. - Case d/w General Surgery (09/12/17), Dr. Bustillos. - Case d/w General Surgery (09/13/17), Dr. Pelletier. - Continue Vancomycin thru 09/16/17. - Will observe clinic course thru Saturday 09/16 and then discuss case further with ID and General Surgery - DVT prophylaxis - supportive care 09/16/17 - Pt interviewed and examined. - Pt's abdominal wall celluitis continues to improve. - Abdominal wall has less erythema, raised area at umbilicus improving - continue vancomycin, abx per ID (2) Paroxysmal atrial fibrillation ICD Codes: I48.0 - Paroxysmal atrial fibrillation Status: Chronic Plan: - continue metoprolol and Aspirin (3) HTN (hypertension) ICD Codes: I10 - HTN (hypertension) Status: Chronic Plan: - metoprolol (4) Asthma ICD Codes: J45.909 - Asthma Status: Chronic Plan: - duonebs prn (5) Meningioma ICD Codes: D32.9 - Meningioma Status: Resolved Plan: - see HPI and PMH for further discussion of this prior issue. Assessment and Plan Patient examined. Assessment and plan formulated with Lena Devries PA-C. I agree with the above. abdomen cellulitis. inflammation near abdomen wall mesh. long discussion with pt/ID/gen surg. Pt will go home on linezolid, keflex, diflucan. f/u closely with ID and DR Bustillos next week for reevaluation. no specific bacteria on blood or wound cx. pt was on multiple abx prior to admission. monitor for pancytopenia on zyvoxx. If abx fail then pt realizes that mesh removal will be a major surgery and probably not well tolerated. Problem Qualifiers (1) HTN (hypertension): Qualified Codes: I10 - Essential (primary) hypertension (2) Asthma: Lena Devries Sep 16, 2017 09:07 Josh Centeno MD Sep 16, 2017 18:19
[2017-09-16] MEDS: ASPIRIN 325 MG TAB PO SCH (10:01)
[2017-09-16] MEDS: LACTOBACILLUS ACIDOPHILUS TAB PO SCH ×2 (10:01→12:50)
[2017-09-16] MEDS: PANTOPRAZOLE SOD 40 MG DELAYED RELEASE TAB PO SCH (10:02)
[2017-09-16] MEDS: METOPROLOL SUCCINATE 50 MG EXTENDED RELEASE TAB PO SCH (10:02)
[2017-09-16] MEDS: CHOLECALCIFEROL (VIT D3) 1000 UNIT TAB PO SCH (10:02)
[2017-09-16] MEDS: VANCOMYCIN 1,500 MG/NS 500 ML IV SCH ×2 (10:26)
[2017-09-16 11:53] LABS: FACTOR VIII(8) ACTIVITY 101 (50-180)
[2017-09-16 12:00] VITALS: BP 117/77; PULSE 52; RESP 19; TEMP 97.9; O2SAT 96
--- NOTE | 2017-09-16 12:25 | HHI.IDPN ---
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 no fever no rash No diarrhea Antibiotics vanco Allergies: Coded Allergies: amiodarone (Verified Allergy, Severe, 09/12/17) rash doxycycline (Unverified Allergy, Severe, Rash, 09/12/17) minocycline (Unverified Allergy, Severe, Rash, 09/12/17) tigecycline (Unverified Allergy, Severe, Rash, 09/12/17) Sulfa (Sulfonamide Antibiotics) (Unverified Allergy, Unknown, 09/12/17) ciprofloxacin (Unverified Allergy, Unknown, 09/12/17) Objective . Vital Signs Date Time Temp Pulse Resp B/P (MAP) Pulse Ox O2 Delivery O2 Flow Rate FiO2 09/16/17 12:00 97.9 52 19 117/77 (90) 96 09/16/17 08:00 98.2 50 18 99/54 (69) 92 09/16/17 00:00 97.4 53 20 103/52 (69) 95 09/15/17 20:00 97.4 57 22 120/58 (78) 95 09/15/17 16:00 97.3 48 19 127/69 (88) 97 . Laboratory Tests Test 09/16/17 06:48 White Blood Count 5.5 TH/MM3 Red Blood Count 4.80 MIL/MM3 Hemoglobin 15.7 GM/DL Hematocrit 45.1 % Mean Corpuscular Volume 94.1 FL Mean Corpuscular Hemoglobin 32.7 PG Mean Corpuscular Hemoglobin Concent 34.7 % Red Cell Distribution Width 13.6 % Platelet Count 366 TH/MM3 Mean Platelet Volume 8.9 FL Neutrophils (%) (Auto) 58.2 % Lymphocytes (%) (Auto) 20.9 % Monocytes (%) (Auto) 11.9 % Eosinophils (%) (Auto) 7.9 % Basophils (%) (Auto) 1.1 % Neutrophils # (Auto) 3.2 TH/MM3 Lymphocytes # (Auto) 1.1 TH/MM3 Monocytes # (Auto) 0.7 TH/MM3 Eosinophils # (Auto) 0.4 TH/MM3 Basophils # (Auto) 0.1 TH/MM3 CBC Comment DIFF FINAL Differential Comment Laboratory Tests Test 09/16/17 06:48 Blood Urea Nitrogen 20 MG/DL Creatinine 1.19 MG/DL Random Glucose 92 MG/DL Calcium Level 9.2 MG/DL Magnesium Level 2.0 MG/DL Sodium Level 141 MEQ/L Potassium Level 4.2 MEQ/L Chloride Level 106 MEQ/L Carbon Dioxide Level 27.5 MEQ/L Anion Gap 8 MEQ/L Estimat Glomerular Filtration Rate 61 ML/MIN Microbiology Date/Time Source Procedure Growth Status 09/13/17 16:35 Wound Abdomen Gram Stain - Final Complete 09/13/17 16:35 Wound Abdomen Wound Culture - Final NO GROWTH IN 72 HRS.--AEROBICALLY OR ... Complete Imaging Last Impressions Soft Tissue Ultrasound 09/12/17 0000 Signed Impressions: Service Date/Time: August 11:57 - CONCLUSION: Ill-defined hypoechoic area which is nonspecific and could represent localized edema and/ or inflammatory change. This is less likely represents an abscess. Taran Salazar MD Abdomen/Pelvis CT 09/12/17 0000 Signed Impressions: Service Date/Time: August 14:47 - CONCLUSION: Soft tissue underneath the umbilicus with some surrounding inflammation. This is likely related to the hernia mesh placement. Obviously difficult to rule out infection with this amount of surrounding inflammation but I do not see any drainable fluid collections to suggest an abscess. Beau Walker MD Physical Exam GENERAL: This is a well-nourished, well-developed patient, in no apparent distress. SKIN: No rashes, ecchymoses or lesions. Cool and dry. EYES: No scleral icterus. No injection or drainage. ENT: Nose without bleeding, purulent drainage or septal hematoma. Throat without erythema, tonsillar hypertrophy or exudate. Uvula midline. Airway patent. CARDIOVASCULAR: Regular rate and rhythm without murmurs, gallops, or rubs. RESPIRATORY: Clear to auscultation. Breath sounds equal bilaterally. No wheezes , rales, or rhonchi. GASTROINTESTINAL: Abdomen soft, midline heaped up induration with small serous to yellow discharge with a large area of surrounding erythema and induration. OPneing in the middle of incision with some necrotic tissu and serosang drainage MUSCULOSKELETAL: Extremities without clubbing, cyanosis, or edema. NEUROLOGICAL: Awake and alert. Non focal Cooperative, pleasant IV line sites with no e.o infection. Laboratory Assessment & Plan Remarks abdominal wall Mesh infection, with fistula - growint staph 1 CFU - pt presented with partial treatmetn prior to clx was obtained, including dicloxacillin and rocephine CT Abd pelvis reviewed with radiologist: definiete marked inflammation around mesh Recs - fu clx, including fungal and AFB =- cont zosyn, vancomycin - with mesh infection high likelyhood of failure during or after treatment especially if smx persist 1 week p abx Opal Sanchez MD Sep 16, 2017 12:25
[2017-09-16] MEDS ORDERED: DIFL200T PO (15:03)
[2017-09-16] MEDS ORDERED: ZYVO600T PO (15:03)
[2017-09-16] MEDS ORDERED: CEPH-460 PO (15:03)
--- NOTE | 2017-09-16 15:03 | HHI.DCPOC ---
Discharge Care Plan Diagnosis: (1) Cellulitis, abdominal wall Goals to Promote Your Health * To prevent worsening of your condition and complications * To maintain your health at the optimal level Directions to Meet Your Goals Take your medications as prescribed Follow your dietary instruction Follow activity as directed Keep your appointments as scheduled Take your immunizations and boosters as scheduled If your symptoms worsen call your PCP, if no PCP go to Urgent Care Center or Emergency Room Smoking is Dangerous to Your Health. Avoid second hand smoke Call the 24-hour hour crisis hotline for domestic abuse at Josh Centeno MD Sep 16, 2017 15:03
--- NOTE | 2017-09-16 15:08 | HHI.DS ---
Discharge Summary Admission Date Sep 13, 2017 at 15:31 Discharge Date: Sep 16, 2017 Admitting Diagnosis cellulitis (1) Cellulitis, abdominal wall ICD Codes: L03.311 - Cellulitis of abdominal wall Status: Acute (2) Paroxysmal atrial fibrillation ICD Codes: I48.0 - Paroxysmal atrial fibrillation Status: Chronic (3) HTN (hypertension) ICD Codes: I10 - HTN (hypertension) Status: Chronic (4) Asthma ICD Codes: J45.909 - Asthma Status: Chronic (5) Meningioma ICD Codes: D32.9 - Meningioma Status: Resolved Consultants Dr. Sanchez, ID Dr. Bustillos, general surgery Procedures none Brief History Patient is a pleasant 67-year-old male with prior history of meningioma, status post excision with complications of bacterial meningitis, meningocele, ventriculoperitoneal shunt complications. Patient's postprocedural course for his ventriculoatrial shunt was complicated by a provoked pulmonary embolism and subclavian vein thrombosis. These events occurred in 2013, and I recall the patient from April 2014 hospitalization. Per [facility] review, patient was last seen by hematology/oncology, Dr. Jessy Little October 2014. Patient is no longer on chronic anticoagulation. Patient was seen by general surgery, Dr. Papito Bustillos, on August 28, 2017. I have reviewed the office note. At that time, Dr. Benson complained of localized erythema at his lower abdomen which had started 2 days prior. Patient denied pain or fever physical exam by Dr. Bustillos revealed region of induration and erythema of approximately 10 cm diameter. At that time patient was recommended Rocephin 1 g IV and Augmentin 500 mg 3 times daily for 10 days. Pt completed 3 dose of Augmentin. Patient had an outpatient soft tissue ultrasound on 08/28/17 which showed soft tissue edema. Patient had a second outpatient soft tissue ultrasound performed on 09/02/17 which showed soft tissue edema in the subcutaneous tissue of possible cellulitis. No definitive abscess collection was noted. Subsequently, Dr. Benson traveled from [facility] to [facility]. Patient has been giving himself Rocephin 1 g IM injections for the last 10 days. However, patient reports that cellulitis around his periumbilical area has been worsening. Pt took clindamycin 450mg 2 doses 09/10 -09/11/17. Pt also started on unspecified probiotics. Patient performed self incision with sterile needle and drainage expressing serosanguineous fluid 09/10/17. No culture was done. Patient flew back to the [place] from [place] arriving in [place], [place] on 09/12/17 arriving after midnight. Patient then drove directly to the [facility] ER. Since admission, patient has had no fever, chills, nausea, vomiting, or diarrhea. Initial CBC showed no leukocytosis, WBC 5.3. Patient received 1 g of vancomycin in the [place] ER at approximately 5:30 AM this morning. Blood cultures were drawn in the ER and they are pending at this time. Of concern patient has had previous multiple abdominal surgeries: 2006 Pt had ruptured appendix, retrocecal. Wound healed by secondary intent. Pt subsequently developed a ventral hernia which was repaired with mesh and required a revision. 2017 Meningioma surgery. Developed pseudomeningocele. [employer] shunt converted to ventricular-atrial shunt. 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 Also, colon repair. CBC/BMP: 09/16/17 0648 09/16/17 0648 Significant Findings Laboratory Tests Test 09/14/17 09:10 09/16/17 06:48 09/16/17 09:30 Vancomycin Level Trough 17.2 MCG/ML (5.0-10.0) 16.7 MCG/ML (5.0-10.0) Monocytes (%) (Auto) 11.9 % (0.0-8.0) Eosinophils (%) (Auto) 7.9 % (0.0-4.0) Blood Urea Nitrogen 20 MG/DL (7-18) Estimat Glomerular Filtration Rate 61 ML/MIN (>89) Imaging Last Impressions Soft Tissue Ultrasound 09/12/17 0000 Signed Impressions: Service Date/Time: August 11:57 - CONCLUSION: Ill-defined hypoechoic area which is nonspecific and could represent localized edema and/ or inflammatory change. This is less likely represents an abscess. Taran Salazar MD Abdomen/Pelvis CT 09/12/17 0000 Signed Impressions: Service Date/Time: August 14:47 - CONCLUSION: Soft tissue underneath the umbilicus with some surrounding inflammation. This is likely related to the hernia mesh placement. Obviously difficult to rule out infection with this amount of surrounding inflammation but I do not see any drainable fluid collections to suggest an abscess. Beau Walker MD PE at Discharge GENERAL: This is a well-nourished, well-developed patient, in no apparent distress. CARDIOVASCULAR: Regular rate and rhythm without murmurs, gallops, or rubs. RESPIRATORY: Clear to auscultation. Breath sounds equal bilaterally. No wheezes , rales, or rhonchi. GASTROINTESTINAL: Abdomen soft, non-tender, nondistended. Normal active bowel sounds MUSCULOSKELETAL: Extremities without clubbing, cyanosis, or edema. NEURO: Alert & Oriented x4 to person, place, time, situation. Moves all ext x4 Skin: erythema at the abdominal wall appears to be improving from admission (). Less red. one inch area, open and raised at umbilicus, but less drainage - serous - improving from admission. Hospital Course Cellulitis, abdominal wall - Comgmt with Infectious Disease and General Surgery - please see my the HPI section of my H&P for detailed account of the pt's clinical course prior to admission and discussion of previous abdominal surgeries - Pt was taking IM Rocephin for approximately 10d prior to arrival at [place] - Pt also briefly took PO augmentin and clindamycin in the 2 week proceeding his admission. - US of Soft tissue of abdominal wall (09/12) --> no abscess - CT Abd (09/12) --> NO abscess - Case d/w Infectious Disease (09/12/17), Dr. Sanchez. - Case d/w General Surgery (09/12/17), Dr. Bustillos. - Case d/w General Surgery (09/13/17), Dr. Pelletier. - Continue Vancomycin thru 09/16/17. - Will observe clinic course thru Saturday 09/16 - Dr. Centeno discussed the case further with ID Dr. Sanchez and General Surgery Dr. Bustillos. Dr. Sanchez recommending Zyvox 600mg PO BID x 2 weeks, Keflex and Diflucan Patient also given a prescription for CBC and CMP in 1 and 2 weeks with results to PCP Dr. Allen and Dr. Adrian Bustillos will follow up in his office outpatient, PCP and Dr. Ram outpatient - DVT prophylaxis - supportive care 09/16/17 - Pt interviewed and examined. - Pt's abdominal wall celluitis continues to improve. - Abdominal wall has less erythema, raised area at umbilicus improving - abx per ID Paroxysmal atrial fibrillation - continue metoprolol and Aspirin HTN (hypertension) - metoprolol Asthma - duonebs prn Meningioma - see HPI and PMH for further discussion of this prior issue. Pt Condition on Discharge: Stable Discharge Disposition: Discharge Home Discharge Instructions DIET: Follow Instructions for: Heart Healthy Diet Activities you can perform: Regular-No Restrictions Follow up Referrals: Infectious Disease - 1 Week with Merline Ram Surgical - 1 Week with Papito Bustillos MD New Medications: Cephalexin (Keflex) 500 Mg Capsule 500 MG PO QID for Infection for 14 Days, CAP 0 Refills Fluconazole (Diflucan) 200 Mg Tab 200 MG PO DAILY for Infection for 7 Days, #7 TAB 0 Refills Linezolid (Zyvox) 600 Mg Tab 600 MG PO Q12H for Infection for 14 Days, #28 TAB 0 Refills Continued Medications: Atorvastatin (Atorvastatin) 20 Mg Tab 20 MG PO HS for Cholesterol Management, #30 TAB 0 Refills Calcium Carbonate (Antacid) (Calcium Carbonate (Antacid)) 500 Mg Chew 500 MG CHEW DAILY PRN for HEARTBURN, TAB 0 Refills Cholecalciferol (Vitamin D-1000) 1,000 Unit Tab 1000 UNITS PO DAILY for Nutritional Supplement, #1 BOTTLE 0 Refills Hydrochlorothiazide (Hydrochlorothiazide) 25 Mg Tab 25 MG PO DAILY, #30 TAB 0 Refills Metoprolol Succinate ER 24 HR (Metoprolol Succinate ER 24 HR) 50 Mg Tab 50 MG PO DAILY, #30 TAB 0 Refills Montelukast (Montelukast) 10 Mg Tab 10 MG PO HS, #30 TAB 0 Refills Pantoprazole (Pantoprazole) 40 Mg Tab 40 MG PO DAILY for Reflux, #30 TAB 0 Refills Lena Devries Sep 16, 2017 15:08
[2017-09-16 17:52] LABS: BETA2-GLYCOPROTEIN IGA <9 SAU (< OR = 20); BETA2-GLYCOPROTEIN IGG <9 SGU (< OR = 20); BETA2-GLYCOPROTEIN IGM <9 SMU (< OR = 20)
[2017-09-16 23:53] LABS: HOMOCYSTEINE 10.4 umol/L (<11.4)
[2017-09-17 03:52] LABS: ACTIVATED PROTEIN C RESISTANCE 4.6 ratio (> OR = 2.1); ANTI-THROMBIN III ACT 94 (80-120)
[2017-09-17 19:01] LABS: PROTEIN C ACTIVITY 97 % (70 - 150); PROTEIN S ACTIVITY 90 % (65 - 160)
== END 2017-09-16 15:57 | disposition home or self-care (01) | DRG 920 ==
LOC: NEPC 03:54 → NEDA 06:05 → NEPGCP 11:06 → OBSVTOIN 09-13 15:31 → N07A 09-13 18:27
PROVIDERS: ADMIT Hospitalist; ATTEND Hospitalist
DX: T85.79XA Infection and inflammatory reaction due to other internal prosthetic devices, implants and grafts, initial encounter (principal); L03.311 Cellulitis of abdominal wall; K63.2 Fistula of intestine; D68.61 Antiphospholipid syndrome; I48.0 Paroxysmal atrial fibrillation; J45.909 Unspecified asthma, uncomplicated; M19.90 Unspecified osteoarthritis, unspecified site; I34.0 Nonrheumatic mitral (valve) insufficiency; B95.8 Unspecified staphylococcus as the cause of diseases classified elsewhere; D32.9 Benign neoplasm of meninges, unspecified; I10 Essential (primary) hypertension; Z79.899 Other long term (current) drug therapy; Z88.1 Allergy status to other antibiotic agents; Z88.2 Allergy status to sulfonamides; Z88.8 Allergy status to other drugs, medicaments and biological substances; Z86.711 Personal history of pulmonary embolism; Z86.718 Personal history of other venous thrombosis and embolism
CPT/HCPCS: 74177; 76937; 76999; 80048; 80053; 80202; 81240; 81241; 81291; 83090; 83605; 83735; 85025; 85240; 85300; 85303; 85306; 85307; 86146; 86147; 86148; 86403; 87015; 87040; 87070; 87102; 87116; 87205; 87206; J2543; J3370; J7040; J7050; Q9967